=== PATIENT | female | born 1950 | race Caucasian/White ===

== ENCOUNTER 2023-06-25 13:53 | Inpatient (IN) ==
[2023-06-25] MEDS ORDERED: ONDANSETRON INJ 2 MG/ML 2 ML VIAL IV STA (14:00)
[2023-06-25] MEDS ORDERED: SODIUM CHLORIDE 0.9% 1,000 ML IV STA (14:00)
--- NOTE | 2023-06-25 14:12 | Emergency Department Note ---
Impression & Plan Acute pyelonephritis, Complicated UTI (urinary tract infection), Acute right flank pain ED Provider Note NAME: ALEIDA THAKUR AGE: 72 SEX: F : 1950 ARRIVES VIA: Ambulance INFORMANT: Patient, ED PROVIDER(S): Jordan Schafer DO CHIEF COMPLAINT: Flank pain HPI: The patient is a 72-year-old female who has a history of recurrent urinary tract infection as well as urinary retention who presented to the emergency department by ambulance for right flank pain and lower abdominal pain. The patient has had nausea. She denies having any fever. She noticed her urine is becoming cloudy and thought she might have another urinary tract infection. The patient presented by ambulance from [facility]. She wanted to come to our facility because her urologist is here. She has a history of having a cystoscopy in the past. ROS: See above HPI for pertinent positives & negatives. A total of 10 systems reviewed and were otherwise negative. PAST MEDICAL HISTORY: See Below PAST SURGICAL HISTORY: See Below FAMILY HISTORY: See Below SOCIAL HISTORY: See Below HOME MEDICATIONS: See Below ALLERGIES: See Below VITALS: See Below PHYSICAL EXAMINATION: GENERAL: Patient is awake alert in no acute distress patient is resting comfortably and showing no signs of anxiety EYES: The conjunctivae are clear. The pupils are round and reactive. EARS, NOSE, MOUTH AND THROAT: The nose is without any evidence of any deformity. NECK: The neck is nontender and supple. RESPIRATORY: Normal respiratory effort is noted there is no evidence of wheezing rhonchi or rales CARDIOVASCULAR: Regular rate and rhythm noted there no murmurs rubs or gallops normal S1 normal S2. GASTROINTESTINAL: The abdomen is mildly distended but soft. There is no guarding or rigidity appreciated. BACK: Right CVA tenderness was noted to percussion. MUSCULOSKELETAL/EXTREMITIES: There is no evidence of gross deformity full range of motion is noted in the hips and shoulders. SKIN: There is no obvious evidence of any rash. There are no petechiae, pallor or cyanosis noted. NEUROLOGIC: Patient is awake alert and oriented x3 strength is symmetric patellar reflexes are 2+ bilaterally MEDICAL DECISION MAKING: The patient is a 72-year-old female who presented to the emergency department for an evaluation of cloudy urine and flank pain. The patient is a history of urinary retention. She had a Serrano catheter placed because of urinary retention. The Serrano catheter was changed in the emergency department. I discussed the patient's laboratory and radiographic studies with her. She was treated with IV fluids and IV antibiotics. Given her findings I discussed her condition with the on-call [facility]ist. They have agreed to evaluate the patient in the emergency department for further management and disposition. Triage Nursing notes reviewed. Prior medical records reviewed Vital Signs: reviewed and remarkable for elevated blood pressure. Differential diagnosis: Renal colic, UTI, appendicitis, diverticulitis, mesenteric ischemia, aortic pathology, infections, inflammatory bowel disease, PUD, biliary pathology, as well as other pathologies. ER treatment provided: See below Diagnostics interpreted by me: ECG: none Cardiac Monitoring: An order was placed for continuous cardiac monitoring. The monitor shows a rate of 74 bpm with sinus rhythm. Laboratory studies: As stated above and show below. Imaging studies: See below. Radiographic imaging was reviewed by myself Consultation(s): I discussed this case with Dr. Guevara who is on-call for the [facility]ist group. Past Med/Surg History Medical History Gross hematuria Urinary retention Social History Smoking Status: Former smoker Feels Safe at Home: Yes Allergies Allergies Allergy/AdvReac Type Severity Reaction Status Date / Time morphine AdvReac Mild Uncoded 04/26/23 10:37 Home Meds Home Medications Medication Instructions Recorded Confirmed apremilast 30 mg tablet (Otezla) 30 mg PO BID 04/26/23 06/25/23 cholecalciferol (vitamin D3) 50 50 mcg PO DAILY 04/26/23 06/25/23 mcg (2,000 unit) capsule docusate sodium 100 mg capsule 200 mg PO DAILY 04/26/23 06/25/23 (Colace) hydroxyzine HCl 25 mg tablet 25 mg PO DAILY PRN Other 04/26/23 06/25/23 lactulose 10 gram/15 mL oral 45 ml PO DAILY 04/26/23 06/25/23 solution magnesium 200 mg tablet 400 mg PO DAILY 04/26/23 06/25/23 nitroglycerin 0.4 mg sublingual 0.4 mg sublingual Q5M PRN Other 04/26/23 06/25/23 tablet oxycodone 10 mg tablet 10 mg PO Q6H PRN breakthrough pain 04/26/23 06/25/23 oxycodone 20 mg tablet 20 mg PO BID 04/26/23 06/25/23 pantoprazole 40 mg tablet,delayed 40 mg PO DAILY 04/26/23 06/25/23 release (Protonix) polyethylene glycol 3350 17 17 g PO DAILY 04/26/23 06/25/23 gram/dose oral powder (Miralax) pregabalin 300 mg capsule (Lyrica) 300 mg PO BID 04/26/23 06/25/23 rifaximin 550 mg tablet (Xifaxan) 550 mg PO BID 04/26/23 06/25/23 ropinirole 0.5 mg tablet 0.5 mg PO QPM 04/26/23 06/25/23 semaglutide 0.25 mg or 0.5 mg (2 0.5 mg subcut .weekly 04/26/23 06/25/23 mg/3 mL) subcutaneous pen injector (Ozempic) tizanidine 4 mg capsule (Zanaflex) 4 mg PO Q6H PRN Other 04/26/23 06/25/23 umeclidinium 62.5 mcg/actuation 1 inh inhalation DAILY 04/26/23 06/25/23 blister powder for inhalation (Incruse Ellipta) cyanocobalamin (vitamin B-12) See Rx Instructions .Route .COMPLEX 06/25/23 06/25/23 1,000 mcg/mL injection solution duloxetine 30 mg capsule,delayed 30 mg PO DAILY 06/25/23 06/25/23 release isosorbide mononitrate 30 mg 30 mg PO DAILY 06/25/23 06/25/23 tablet,extended release 24 hr ondansetron HCl 4 mg tablet See Rx Instructions .Route .COMPLEX 06/25/23 06/25/23 Previous Rx's Medication Instructions Recorded oxybutynin chloride 10 mg 10 mg PO DAILY #30 tabs 04/26/23 tablet,extended release 24 hr Results & Data (ED) Vital Signs Vital Signs - 24 hr 06/25/23 14:09 06/25/23 14:09 06/25/23 14:20 Temperature 36.9 C Temperature Source Oral Pulse Rate 83 83 Pulse Rate [Apical] Pulse Rhythm Regular Pulse Strength Normal Respiratory Rate 24 Respiratory Effort / Characteristics Non-Labored Respiratory Depth Normal Respiratory Pattern Regular Blood Pressure 198/118 H Blood Pressure [Left Arm] Blood Pressure Mean 144 Blood Pressure Mean [Left Arm] Blood Pressure Position Lying Pulse Oximetry 97 Oxygen Delivery Method Room Air Room Air Sepsis Recent Fever Within 48 Hours No Sepsis New/Unexplained Change in Mental Status No Sepsis Action Taken by Nursing No Action Required 06/25/23 15:39 Temperature Temperature Source Pulse Rate Pulse Rate [Apical] 74 Pulse Rhythm Pulse Strength Respiratory Rate 22 Respiratory Effort / Characteristics Respiratory Depth Respiratory Pattern Blood Pressure Blood Pressure [Left Arm] 197/96 H Blood Pressure Mean Blood Pressure Mean [Left Arm] 129 Blood Pressure Position Pulse Oximetry 98 Oxygen Delivery Method Room Air Sepsis Recent Fever Within 48 Hours Sepsis New/Unexplained Change in Mental Status Sepsis Action Taken by Correction Medications Current Medication List: was personally reviewed by me Laboratory Data Attestation: I reviewed the patient's lab results. 06/25/23 14:10 06/25/23 14:10 Lab Results 06/25/23 06/25/23 06/25/23 Range/Units 14:10 14:10 14:10 WBC 3.47 L (4.8-10.8) K/ul RBC 4.92 (4.20-5.40) M/uL Hgb 12.5 (12.0-16.0) g/dl Hct 40.1 (37.0-47.0) % MCV 81.5 (80.0-100.0) fL MCH 25.4 (25.0-34.0) pg MCHC 31.2 L (32.0-36.0) g/dL RDW Std Deviation 47.8 H (36.4-46.3) fL RDW Coeff of Doreen 16.3 H (11.5-14.5) % Plt Count 134 (130-400) K/uL MPV 10.8 (9.4-12.4) fL Immature Gran % (Auto) 0.6 % Neut % (Auto) 72.5 % Lymph % (Auto) 17.6 % Shackelford % (Auto) 6.1 % Eos % (Auto) 2.6 % Baso % (Auto) 0.6 % Neut # (Auto) 2.52 (1.40-6.50) K/uL Lymph # (Auto) 0.61 L (1.2-3.4) K/uL Shackelford # (Auto) 0.21 (0.11-0.59) K/uL Eos # (Auto) 0.09 (0-0.50) K/uL Baso # (Auto) 0.02 (0-0.2) K/uL Immature Gran # (Auto) 0.02 (0.01-0.20) K/uL PT 10.9 (9.0-12.0) Seconds INR 1.0 (0.9-1.1) APTT 25.0 (21.0-31.0) Seconds PTT Ratio 0.9 Sodium 137 (136-145) mmol/L Potassium 3.9 (3.5-5.1) mmol/L Chloride 104 (98-107) mmol/L Carbon Dioxide 24 (21-32) mmol/L Anion Gap 9 (3-11) BUN 11 (6-23) mg/dl Creatinine 0.59 L (0.6-1.2) mg/dl Est Cr Clr Drug Dosing 98.4 ml/min Est GFR ( Amer) 106.1 ml/min Est GFR (Non-Af Amer) 91.6 ml/min BUN/Creatinine Ratio 18.6 (10-20) Glucose 164 H (70-99(Fasting)) mg/dl Calcium 10.6 H (8.6-10.3) mg/dl Total Bilirubin 0.5 (0.2-1.0) mg/dl AST 15 (13-39) U/L ALT 15 (7-52) U/L Alkaline Phosphatase 128 H (34-104) U/L Total Protein 7.6 (6.0-8.3) gm/dl Albumin 4.3 (3.4-5.0) gm/dl Globulin 3.3 (2.5-4.0) gm/dl Albumin/Globulin Ratio 1.3 (0.9-2) Lipase 15 (11-82) U/L Urine Color Urine Appearance (Clear) Urine pH (4.5-7.5) Ur Specific Dillard (1.000-1.030) Urine Protein (Negative) Urine Glucose (UA) (Negative) Urine Ketones (Negative) Urine Blood (Negative) Urine Nitrite (Negative) Urine Bilirubin (Negative) Urine Urobilinogen (Negative) Ur Leukocyte Esterase (Negative) Urine WBC (Auto) (0-5) /hpf Urine RBC (Auto) (0-4) /hpf U Hyaline Cast (Auto) (0-5) /lpf U Epithel Cells (Auto) (0-5) /lpf Urine Bacteria (Auto) (Negative) 06/25/23 Range/Units 14:27 WBC (4.8-10.8) K/ul RBC (4.20-5.40) M/uL Hgb (12.0-16.0) g/dl Hct (37.0-47.0) % MCV (80.0-100.0) fL MCH (25.0-34.0) pg MCHC (32.0-36.0) g/dL RDW Std Deviation (36.4-46.3) fL RDW Coeff of Doreen (11.5-14.5) % Plt Count (130-400) K/uL MPV (9.4-12.4) fL Immature Gran % (Auto) % Neut % (Auto) % Lymph % (Auto) % Shackelford % (Auto) % Eos % (Auto) % Baso % (Auto) % Neut # (Auto) (1.40-6.50) K/uL Lymph # (Auto) (1.2-3.4) K/uL Shackelford # (Auto) (0.11-0.59) K/uL Eos # (Auto) (0-0.50) K/uL Baso # (Auto) (0-0.2) K/uL Immature Gran # (Auto) (0.01-0.20) K/uL PT (9.0-12.0) Seconds INR (0.9-1.1) APTT (21.0-31.0) Seconds PTT Ratio Sodium (136-145) mmol/L Potassium (3.5-5.1) mmol/L Chloride (98-107) mmol/L Carbon Dioxide (21-32) mmol/L Anion Gap (3-11) BUN (6-23) mg/dl Creatinine (0.6-1.2) mg/dl Est Cr Clr Drug Dosing ml/min Est GFR ( Amer) ml/min Est GFR (Non-Af Amer) ml/min BUN/Creatinine Ratio (10-20) Glucose (70-99(Fasting)) mg/dl Calcium (8.6-10.3) mg/dl Total Bilirubin (0.2-1.0) mg/dl AST (13-39) U/L ALT (7-52) U/L Alkaline Phosphatase (34-104) U/L Total Protein (6.0-8.3) gm/dl Albumin (3.4-5.0) gm/dl Globulin (2.5-4.0) gm/dl Albumin/Globulin Ratio (0.9-2) Lipase (11-82) U/L Urine Color Red Urine Appearance Cloudy A (Clear) Urine pH 7.5 (4.5-7.5) Ur Specific Dillard 1.013 (1.000-1.030) Urine Protein 3+ H (Negative) Urine Glucose (UA) Negative (Negative) Urine Ketones Negative (Negative) Urine Blood 3+ H (Negative) Urine Nitrite Negative (Negative) Urine Bilirubin Negative (Negative) Urine Urobilinogen Negative (Negative) Ur Leukocyte Esterase 2+ H (Negative) Urine WBC (Auto) >30 H (0-5) /hpf Urine RBC (Auto) >30 H (0-4) /hpf U Hyaline Cast (Auto) 5-10 H (0-5) /lpf U Epithel Cells (Auto) 20-30 H (0-5) /lpf Urine Bacteria (Auto) Negative (Negative) Administered Medications Discontinued Medications Sodium Chloride (Nss 1000ml) 1,000 mls @ 999 mls/hr IV .Q1H1M STA Stop: 06/25/23 15:00 Last Admin: 06/25/23 15:35 Dose: 999 mls/hr Documented By: NORA Cefepime HCl (Maxipime) 2,000 mg in 20 mls @ 5 mls/min IV NOW STA; Protocol Stop: 06/25/23 15:32 Last Admin: 06/25/23 15:36 Dose: 5 mls/min Documented By: NORA Ondansetron HCl (Ondansetron Inj 2 Mg/Ml 2 Ml Vial) 4 mg IV NOW STA Stop: 06/25/23 14:01 Last Admin: 06/25/23 15:35 Dose: 4 mg Documented By: NORA Imaging Data Attestation: I personally reviewed and interpreted this imaging study as follows: My Impression: CT of the abdomen and pelvis was obtained in the emergency department. My interpretation is no free air or signs of bowel obstruction, final report below Radiologist's Impression: Abdomen/Pelvis CT 06/25/23 14:00 CT SCAN OF THE ABDOMEN AND PELVIS WITHOUT IV CONTRAST CLINICAL HISTORY: Right flank pain. COMPARISON STUDY: Abdominal CT dated 04/01/2023. TECHNIQUE: CT scan of the abdomen and pelvis is performed from the lung bases to the proximal femora. Images are reviewed in the axial, sagittal, and coronal planes. IV contrast was not administered for this examination. A dose lowering technique was utilized adhering to the principles of ALARA. CT DOSE: 1349.67 mGy.cm FINDINGS: Lung bases: The heart is normal in size and without pericardial effusion. The coronary arteries are densely calcified. A small hiatal hernia is incidentally noted. There are scattered calcified granulomas. Mild scarring/atelectasis is noted at the lung bases. No airspace consolidation or pleural effusion is seen. Liver: The unenhanced liver is enlarged and heterogeneous, measuring 26.3 cm in length. The liver is cirrhotic in morphology, with hypertrophy of the left lobe and caudate and nodularity of the hepatic surface contour. There is no intrahepatic biliary ductal dilatation. There are scattered calcified hepatic granulomas. Gallbladder: The gallbladder is distended and contains a tiny calcified gallstone. Trace pericholecystic fluid is nonspecific and may be related to perihepatic ascites. Spleen: The spleen is enlarged measuring 14.8 cm in length. Pancreas: Unremarkable. Adrenal glands: Unremarkable. Kidneys: The unenhanced kidneys demonstrate mild cortical atrophy and are with out hydronephrosis. There is a 4 mm nonobstructing right renal calculus. No left renal calculi are identified and no ureteral stone is seen. There is no evidence of contour deforming renal mass lesion. Abdominal vasculature: There is advanced atherosclerotic calcification and mild ectasia of the abdominal aorta. Bowel: There is mild colonic diverticulosis without CT evidence of acute diverticulitis. No bowel obstruction is seen. There is mild to moderate colonic fecal retention. Postsurgical change is noted at the ileocecal junction. The appendix is no identified and presumed surgically absent. Peritoneum: There is a small volume of perihepatic ascites. There is also trace ascites in the pelvis. No intraperitoneal free air is seen. Lymphadenopathy: None. Pelvic viscera: The bladder is decompressed around a Serrano catheter. The bladder wall appears thickened and there is pericystic inflammation. There are nonspecific foci of gas within the bladder lumen. The uterus is surgically absent. No adnexal lesion is seen. Skeletal structures: The skeletal structures are osteopenic. There is moderate lumbosacral spondylosis with multilevel laminectomy change. No lytic or blastic lesions are seen. A sacral stimulator device is present in the right gluteal soft tissues. Arthritic change is seen in the hips. A bone graft donor site is s een in the medial right ilium. IMPRESSION: 1. Cystitis. Correlate with clinical findings and urinalysis. 2. The liver is enlarged, heterogeneous, and cirrhotic in morphology. 3. A small volume of abdominopelvic ascites and splenomegaly indicate portal hypertension. 4. The gallbladder is distended and contains a tiny calcified gallstone. Trace pericholecystic fluid is nonspecific and may be related to cirrhotic change. If there is clinical concern for acute cholecystitis a right upper quadrant ultrasound should be obtained. 5. Right-sided nephrolithiasis. 6. Additional findings as above. ACT 112: Negative or not required by law. Electronically signed by: Garfield Plata M.D. 06/25/2023 3:29 PM Discharge Plan Visit Data Chief Complaint: Urinary Symptoms Stated Complaint: URINARY SYMPTOMS ED Provider: Jordan Schafer Discharge Problem: Acute pyelonephritis, Complicated UTI (urinary tract infection), Acute right flank pain Patient Disposition: Being Evaluated by Hospitalist Forms Stand Alone Forms: My [facility] Prescriptions Prescriptions: No Action docusate sodium [Colace] 100 mg capsule 200 mg PO DAILY hydroxyzine HCl 25 mg tablet 25 mg PO DAILY PRN (Reason: Other) Incruse Ellipta 62.5 mcg/actuation blister with device 1 inh inhalation DAILY lactulose 10 gram/15 mL solution 45 ml PO DAILY Rx Instructions: per pt she reduced the dosing to once daily instead of qid magnesium 200 mg tablet 400 mg PO DAILY nitroglycerin 0.4 mg tablet, sublingual 0.4 mg sublingual Q5M PRN (Reason: Other) Rx Instructions: do not exceed 3 doses per episode Otezla 30 mg tablet 30 mg PO BID Rx Instructions: being changed to skyrizzi when delivered on the oxycodone 20 mg tablet 20 mg PO BID oxycodone 10 mg tablet 10 mg PO Q6H PRN (Reason: breakthrough pain) Rx Instructions: per pt up to 4 tiems daily Ozempic 0.25 mg or 0.5 mg (2 mg/3 mL) pen injector 0.5 mg subcut .weekly Patient Comments: Mondays Rx Instructions: tuesday pantoprazole [Protonix] 40 mg tablet,delayed release (DR/EC) 40 mg PO DAILY polyethylene glycol 3350 [Miralax] 17 gram/dose powder 17 g PO DAILY pregabalin [Lyrica] 300 mg capsule 300 mg PO BID ropinirole 0.5 mg tablet 0.5 mg PO QPM tizanidine [Zanaflex] 4 mg capsule 4 mg PO Q6H PRN (Reason: Other) cholecalciferol (vitamin D3) 50 mcg (2,000 unit) capsule 50 mcg PO DAILY Xifaxan 550 mg tablet 550 mg PO BID oxybutynin chloride 10 mg tablet extended release 24hr 10 mg PO DAILY Qty: 30 2RF duloxetine 30 mg capsule,delayed release(DR/EC) 30 mg PO DAILY ondansetron HCl 4 mg tablet See Rx Instructions .ROUTE .COMPLEX Rx Instructions: as directed isosorbide mononitrate 30 mg tablet extended release 24 hr 30 mg PO DAILY cyanocobalamin (vitamin B-12) 1,000 mcg/mL solution See Rx Instructions .ROUTE .COMPLEX Rx Instructions: Doesnt have set date, son gives her injection when its delviered Referrals Referrals: Unknown,Unknown [] -
[2023-06-25 14:35] LABS: Basophils # (auto) 0.02 K/uL (0-0.2); Basophils % (auto) 0.6 %; Eosinophils # (auto) 0.09 K/uL (0-0.50); Eosinophils % (auto) 2.6 %; Hematocrit (blood only) 40.1 % (37.0-47.0); Hemoglobin 12.5 g/dl (12.0-16.0); Immature Granulocytes # (auto) 0.02 K/uL (0.01-0.20); Immature Granulocytes % (auto) 0.6 %; Lymphocytes # (auto) 0.61 K/uL (1.2-3.4); Lymphocytes % (auto) 17.6 %; Mean Corpuscular Hemoglobin 25.4 pg (25.0-34.0); Mean Corpuscular Hgb Conc 31.2 g/dL (32.0-36.0); Mean Corpuscular Volume 81.5 fL (80.0-100.0); Mean Platelet Volume 10.8 fL (9.4-12.4); Monocytes # (auto) 0.21 K/uL (0.11-0.59); Monocytes % (auto) 6.1 %; Neutrophils # (auto) 2.52 K/uL (1.40-6.50); Neutrophils % (auto) 72.5 %; Platelet Count 134 K/uL (130-400); RDW Coefficient of Variation 16.3 % (11.5-14.5); RDW Standard Deviation 47.8 fL (36.4-46.3); Red Blood Count 4.92 M/uL (4.20-5.40); White Blood Count 3.47 K/ul (4.8-10.8)
[2023-06-25 14:49] LABS: Albumin Globulin Ratio 1.3 (0.9-2); Albumin Level 4.3 gm/dl (3.4-5.0); BUN Creatinine Ratio 18.6 (10-20); Bilirubin,Total 0.5 mg/dl (0.2-1.0); Calcium 10.6 mg/dl (8.6-10.3); Creatinine Clr Calc Pharmacy 98.4 ml/min; Est GFR (African American) 106.1 ml/min; Est GFR (Non-African American) 91.6 ml/min; Globulin 3.3 gm/dl (2.5-4.0); Potassium 3.9 mmol/L (3.5-5.1); Total Protein 7.6 gm/dl (6.0-8.3)
[2023-06-25 15:01] LABS: Appearance Urine Cloudy (Clear); Bacteria Urine Automated Negative (Negative); Bilirubin Urine Negative (Negative); Blood Urine 3+ (Negative); Color Urine Red; Epithelial Cell Urine Auto 20-30 /lpf (0-5); Glucose Urine UA Negative (Negative); Ketones Urine Negative (Negative); Leukocyte Esterase Urine 2+ (Negative); Nitrite Urine Negative (Negative); RBC Urine Automated >30 /hpf (0-4); Specific Gravity Urine 1.013 (1.000-1.030); Urobilinogen Urine Negative (Negative); WBC Urine Automated >30 /hpf (0-5); pH Urine 7.5 (4.5-7.5)
[2023-06-25 15:10] LABS: Protein Urine 3+ (Negative)
[2023-06-25] MEDS ORDERED: CEFEPIME 2,000 MG/20 ML VIAL IV STA (15:29)
--- NOTE | 2023-06-25 15:31 | CT Scan Report ---
CT SCAN OF THE ABDOMEN AND PELVIS WITHOUT IV CONTRAST CLINICAL HISTORY: Right flank pain. COMPARISON STUDY: Abdominal CT dated 04/01/2023. TECHNIQUE: CT scan of the abdomen and pelvis is performed from the lung bases to the proximal femora. Images are reviewed in the axial, sagittal, and coronal planes. IV contrast was not administered for this examination. A dose lowering technique was utilized adhering to the principles of ALARA. CT DOSE: 1349.67 mGy.cm FINDINGS: Lung bases: The heart is normal in size and without pericardial effusion. The coronary arteries are d ensely calcified. A small hiatal hernia is incidentally noted. There are scattered calcified granulom as. Mild scarring/atelectasis is noted at the lung bases. No airspace consolidation or pleural effusi on is seen. Liver: The unenhanced liver is enlarged and heterogeneous, measuring 26.3 cm in length. The liver is cirrhotic in morphology, with hypertrophy of the left lobe and caudate and nodularity of the hepatic surface contour. There is no intrahepatic biliary ductal dilatation. There are scattered calcified he patic granulomas. Gallbladder: The gallbladder is distended and contains a tiny calcified gallstone. Trace pericholecys tic fluid is nonspecific and may be related to perihepatic ascites. Spleen: The spleen is enlarged measuring 14.8 cm in length. Pancreas: Unremarkable. Adrenal glands: Unremarkable. Kidneys: The unenhanced kidneys demonstrate mild cortical atrophy and are without hydronephrosis. The re is a 4 mm nonobstructing right renal calculus. No left renal calculi are identified and no uretera l stone is seen. There is no evidence of contour deforming renal mass lesion. Abdominal vasculature: There is advanced atherosclerotic calcification and mild ectasia of the abdomi nal aorta. Bowel: There is mild colonic diverticulosis without CT evidence of acute diverticulitis. No bowel obs truction is seen. There is mild to moderate colonic fecal retention. Postsurgical change is noted at the ileocecal junction. The appendix is no identified and presumed surgically absent. Peritoneum: There is a small volume of perihepatic ascites. There is also trace ascites in the pelvis . No intraperitoneal free air is seen. Lymphadenopathy: None. Pelvic viscera: The bladder is decompressed around a Serrano catheter. The bladder wall appears thicken ed and there is pericystic inflammation. There are nonspecific foci of gas within the bladder lumen. The uterus is surgically absent. No adnexal lesion is seen. Skeletal structures: The skeletal structures are osteopenic. There is moderate lumbosacral spondylosi s with multilevel laminectomy change. No lytic or blastic lesions are seen. A sacral stimulator devic e is present in the right gluteal soft tissues. Arthritic change is seen in the hips. A bone graft do nor site is seen in the medial right ilium. IMPRESSION: 1. Cystitis. Correlate with clinical findings and urinalysis. 2. The liver is enlarged, heterogeneous, and cirrhotic in morphology. 3. A small volume of abdominopelvic ascites and splenomegaly indicate portal hypertension. 4. The gallbladder is distended and contains a tiny calcified gallstone. Trace pericholecystic fluid is nonspecific and may be related to cirrhotic change. If there is clinical concern for acute cholecy stitis a right upper quadrant ultrasound should be obtained. 5. Right-sided nephrolithiasis. 6. Additional findings as above. ACT 112: Negative or not required by law. Electronically signed by: Garfield Plata M.D. 06/25/2023 3:29 PM
--- NOTE | 2023-06-25 16:17 | History & Physical Report ---
Date of Service June 25, 2023 Assessment & Plan (1) Complicated UTI (urinary tract infection): Plan: Acute UTI, complicated 2/2 indwelling catheter Recommended for inpatient admission due to complicated UTI with catheter and 3 recent courses of antibiotics at risk for resistance Neutropenic 3.47 with history of iron deficiency/Hernandez cirrhosis. Hemoglobin 12.5 Creatinine 0.59 UA chronic infected versus contaminated appearing due to catheter - CT-A/P: 1. Cystitis. Correlate with clinical findings and urinalysis. 2. The liver is enlarged, heterogeneous, and cirrhotic in morphology. 3. A small volume of abdominopelvic ascites and splenomegaly indicate portal hypertension. 4. The gallbladder is distended and contains a tiny calcified gallstone. Trace pericholecystic fluid is nonspecific and may be related to cirrhotic change. If there is clinical concern for acute cholecystitis a right upper quadrant ultrasound should be obtained. 5. Right-sided nephrolithiasis. 6. Additional findings as above. Continue empiric cefepime due to recurrent hospitalization/real treatment/resistance risk Narrow based on culture speciation/sensitivities No concurrent NIDIA/hydro noted Leukopenia, hemoglobin low normal, MCV low normal History of iron deficiency, no baseline WBC available for review Iron, folate, B12 pending Tickborne panel pending Chronic pain, chronic low back pain Patient has oxycodone ER 20 mg twice daily and immediate release 10 mg up to 4 times daily prescribed by pain and spine specialists of [facility]. Additionally has pregabalin 300 mg prescribed by [facility]. Will continue home medications, defer narcotic increase at time of admission. Caution narcotic use in the setting of cirrhosis and history of hyperammonemia/encephalopathy Pregabalin continued - Was pending fentanyl pain pump placement as outpatient. Held plaavix pending this but has been deferred HERNANDEZ cirrhosis with history of varices Follows with [facility] No GI bleeding, no abdominal tenderness. CT as noted, small volume of ascites Has had severe constipation with oral iron, requires IV iron infusions as outpatient No longer on nadolol due to bradycardia/syncope/intolerance Continue rifaximin, lactulose. Reportedly stopped her spironolactone and Lasix although unclear why. Currently ascites is mild. She is hypertensive, with mild ascites spironolactone/Lasix resumed. - Coags ordered Psoriatic arthritis Apremilast temporarily held in the setting of infection Anxiety/depression Continue Cymbalta 30 mg daily, citalopram discontinued CAD, history of PCI [facility] (Dr. Rodríguez) closed, Dr. Dowling (cardiology) office closed Patient stent card for a LAD stent x1 which was placed 6 months w/ Dr. Shaikh at [facility] Patient reports she was switched to Plavix monotherapy after 6 months, and she held her Plavix in anticipation of having a possible fentanyl pump placed with pain management. However this has been delayed due to her recurrent infections and currently has not been taking any antiplatelet. Given this she is high risk for stent reocclusion, Plavix has been restarted in ER. Isosorbide continued.? Beta-dk, reports a history of intolerance due to low heart rate and dizziness ideally would be on this for history of varices and CAD No chest pain/chest pressure prior to admission History of COPD Continue home inhalers Urinary retention With chronic opioids for pain Chronic indwelling Serrano with failed outpatient voiding trials Some concern for colovesicular fistula, considered too high risk for operative intervention. Neuro stimulator also is unable to be revised/replaced Suprapubic catheter discussed on past urology follow-up but again deferred due to operative and anesthesia risk Type II DM Hold semaglutide Goal BSG [id number]. Switch to basal bolus. 8 units Lantus twice daily. Sliding scale CF 50 CR 60 weight-based Glucose checks AC/at bedtime DVT prophylaxis: SCDs. Diet: Heart healthy, low-sodium, type II DM Disposition: Medical/surgical CODE STATUS: DNR/DNI (2) Urinary retention: (3) Gross hematuria: (4) CAD (coronary artery disease): (5) Psoriasis: (6) GERD (gastroesophageal reflux disease): (7) Chronic pain: History of Present Illness Primary Care Provider: Michael Madrigal MD Deidra is a 72-year-old female with a past medical history of Hernandez cirrhosis with portal hypertension, REDDY, polyneuropathy, urinary retention Presents by ambulance for right flank pain and lower abdominal pain with nausea. No fever. Urine cloudy, chronic indwelling Serrano. Requested transfer to [facility] due to her urologist being with our facility. Pt reports sees Dr. Madrigal as outpatient. Last 3 nurse visits was recommended to come to the ER, but had progressive low back and abdominal pain and coulnd't take the spasms so called EMS to come to the hospital. +dysuria, +bladder spasms which make her back pain worse. Recently been on Keflex for UTI, bactrim before that, cipro before that. Was last on an abx 10 days ago. Culture was taken at [facility] Feels more fatigued and confused the last few days, but feels she is able to answer questions accurately now just feels 'foggy.' Has decided to defer stimulator retrial 'its been for years, cant be replaced or removed due to my surgical risk and too much corrosion on the leasd.' Pt reports no bleeding/melena. +hematuria but no blood in bowls. Reports she does take nadolol for esophageal varices but was unable to tolerate this was gradually discontinued. Medical History: Reviewed Medications: Reviewed Surgical History: Reviewed Family history: Reviewed Allergies: Reviewed Social History: no tobacco, no etoh Code Status: DNR/DNI Allergies Allergy/AdvReac Type Severity Reaction Status Date / Time morphine AdvReac Mild Uncoded 04/26/23 10:37 Home Medications Medication Instructions Recorded Confirmed Type apremilast 30 mg tablet (Otezla) 30 mg PO BID 04/26/23 06/25/23 History cholecalciferol (vitamin D3) 50 50 mcg PO DAILY 04/26/23 06/25/23 History mcg (2,000 unit) capsule docusate sodium 100 mg capsule 200 mg PO DAILY 04/26/23 06/25/23 History (Colace) hydroxyzine HCl 25 mg tablet 25 mg PO DAILY PRN Other 04/26/23 06/25/23 History lactulose 10 gram/15 mL oral 45 ml PO DAILY 04/26/23 06/25/23 History solution magnesium 200 mg tablet 400 mg PO DAILY 04/26/23 06/25/23 History nitroglycerin 0.4 mg sublingual 0.4 mg sublingual Q5M PRN Other 04/26/23 06/25/23 History tablet oxybutynin chloride 10 mg 10 mg PO DAILY #30 tabs 04/26/23 06/25/23 Rx tablet,extended release 24 hr oxycodone 10 mg tablet 10 mg PO Q6H PRN breakthrough pain 04/26/23 06/25/23 History oxycodone 20 mg tablet 20 mg PO BID 04/26/23 06/25/23 History pantoprazole 40 mg tablet,delayed 40 mg PO DAILY 04/26/23 06/25/23 History release (Protonix) polyethylene glycol 3350 17 17 g PO DAILY 04/26/23 06/25/23 History gram/dose oral powder (Miralax) pregabalin 300 mg capsule (Lyrica) 300 mg PO BID 04/26/23 06/25/23 History rifaximin 550 mg tablet (Xifaxan) 550 mg PO BID 04/26/23 06/25/23 History ropinirole 0.5 mg tablet 0.5 mg PO QPM 04/26/23 06/25/23 History semaglutide 0.25 mg or 0.5 mg (2 0.5 mg subcut .weekly 04/26/23 06/25/23 History mg/3 mL) subcutaneous pen injector (Ozempic) tizanidine 4 mg capsule (Zanaflex) 4 mg PO Q6H PRN Other 04/26/23 06/25/23 History umeclidinium 62.5 mcg/actuation 1 inh inhalation DAILY 04/26/23 06/25/23 History blister powder for inhalation (Incruse Ellipta) cyanocobalamin (vitamin B-12) See Rx Instructions .Route .COMPLEX 06/25/23 06/25/23 History 1,000 mcg/mL injection solution duloxetine 30 mg capsule,delayed 30 mg PO DAILY 06/25/23 06/25/23 History release isosorbide mononitrate 30 mg 30 mg PO DAILY 06/25/23 06/25/23 History tablet,extended release 24 hr ondansetron HCl 4 mg tablet See Rx Instructions .Route .COMPLEX 06/25/23 06/25/23 History Past Med/Surg History Medical History CAD (coronary artery disease) Chronic pain GERD (gastroesophageal reflux disease) Gross hematuria Psoriasis Urinary retention Social History Smoking Status: Former smoker Feels Safe at Home: Yes Physical Exam Physical Exam: General: A&Ox3. NAD. Cooperative. HEENT: Atraumatic, normocephalic. Vision/hearing intact Pulm: CTAB A&P. -wheezes, -rales, -rhonchi. Symmetrical chest rise. No increased work of breathing. No respiratory distress. Cardiac: RRR, -mrg. Radial pulses intact and symmetrical. Abdominal: Nontender, softly distended, soft. BS present. Extremities: Warm dry. Moves upper extremities equally. No asterixis Results & Data Results & Data Vital Signs (Past 12 Hours) Vital Signs Temp Pulse Pulse Resp BP BP Pulse Ox 06/25/23 15:39 74 22 197/96 H 98 06/25/23 14:20 83 06/25/23 14:09 06/25/23 14:09 36.9 C 83 24 198/118 H 97 O2 Del Method 06/25/23 15:39 Room Air 06/25/23 14:20 06/25/23 14:09 Room Air 06/25/23 14:09 Room Air PG Care Time/CCT Total # of Minutes Spent Total Time Spent with Patient: Total time spent is greater than 50% in coordination of care (as documented) at patient's floor/unit and/or counseling patient: Coding Level of Care Code 71370 INT INP/OBS CARE 3/75MIN Diagnoses Complicated UTI (urinary tract infection) N39.0 Urinary retention R33.9 Gross hematuria R31.0 CAD (coronary artery disease) I25.10 Psoriasis L40.9 GERD (gastroesophageal reflux disease) K21.9 Chronic pain G89.29
[2023-06-25 16:43] LABS: Partial Thromboplastin Ratio 0.9; Prothrombin Time 10.9 Seconds (9.0-12.0)
[2023-06-25] MEDS ORDERED: HYDROmorphone INJ 0.5 MG/0.5 ML SYR IV STA (17:36)
[2023-06-25] MEDS ORDERED: CLOPIDOGREL BISULFATE 75 MG TAB PO ONE (17:37)
[2023-06-25] MEDS ORDERED: SPIRONOLACTONE 25 MG TAB PO ONE (17:58)
[2023-06-25] MEDS: hydrALAZINE HCL 20 MG/ML VIAL IV PRN (18:38)
[2023-06-25 18:44] LABS: Ferritin 14.9 ng/ml (8-388)
[2023-06-25 18:49] LABS: Folate (Folic Acid),Ser orPlas 9.35 ng/ml (>5.38)
[2023-06-25] MEDS ORDERED: DEXTROSE 50% 50 ML SYRINGE IV PRN (19:23)
[2023-06-25] MEDS ORDERED: GLUCAGON FOR INJ 1 MG VIAL SQ PRN (19:23)
[2023-06-25] MEDS ORDERED: CARBOHYDRATES FOR HYPOGLYCEMIA PO PRN (19:23)
[2023-06-25] MEDS ORDERED: GLUCOSE 40% GEL 15 GM TUBE PO PRN (19:23)
[2023-06-25] MEDS ORDERED: GLUCOSE 10 TAB/TUBE PO PRN (19:23)
[2023-06-25] MEDS ORDERED: hydrALAZINE HCL 20 MG/ML VIAL IV ONE (19:42)
[2023-06-25] MEDS: oxyCODONE HCL 20 MG TABCR (OxyCONTIN) PO SCH (19:57)
[2023-06-25] MEDS: oxyCODONE HCL IR 5 MG TAB (IMMEDIATE RELEASE) PO PRN (20:45)
[2023-06-25] MEDS: PREGABALIN 150 MG CAP PO SCH (20:45)
[2023-06-25] MEDS: rOPINIRole HCL 0.25 MG TABLET PO SCH (20:46)
[2023-06-25] MEDS: rifAXIMin 550 MG TABLET PO SCH (20:46)
[2023-06-25] MEDS: LANTUS PER UNIT CHARGE SQ SCH (20:51)
[2023-06-25] MEDS: INSULIN ASPART PER UNIT CHARGE SC SCH (20:51)
[2023-06-26] MEDS: ONDANSETRON INJ 2 MG/ML 2 ML VIAL IV PRN ×2 (00:09→20:01)
[2023-06-26] MEDS: CEFEPIME 2,000 MG in SYRINGE 0 ML IV SCH ×3 (00:10→16:13)
[2023-06-26] MEDS: tiZANidine HCL 4 MG TABLET PO PRN ×3 (00:18→21:19)
[2023-06-26] MEDS: oxyCODONE HCL IR 5 MG TAB (IMMEDIATE RELEASE) PO PRN ×4 (03:30→21:19)
[2023-06-26] MEDS: UMECLIDINIUM BROMIDE 62.5MCG/BLISTER 7 PUFFS/INHALER INH SCH (09:10)
[2023-06-26] MEDS: POLYETHYLENE (MIRALAX) 17 GM PACK PO SCH ×2 (09:10→09:18)
[2023-06-26] MEDS: PREGABALIN 150 MG CAP PO SCH ×2 (09:11→21:19)
[2023-06-26] MEDS: oxyCODONE HCL 20 MG TABCR (OxyCONTIN) PO SCH ×2 (09:11→21:49)
[2023-06-26] MEDS: rifAXIMin 550 MG TABLET PO SCH ×2 (09:11→21:20)
[2023-06-26] MEDS: FUROSEMIDE INJ 20 MG/2 ML VIAL IV SCH (09:11)
[2023-06-26] MEDS: PANTOprazole 40 MG TAB PO SCH (09:12)
[2023-06-26] MEDS: ISOSORBIDE MONO EXTENDED REL 30 MG TABCR PO SCH (09:12)
[2023-06-26] MEDS: LACTULOSE SYRUP 30 GM/45 ML UDP PO SCH (09:12)
[2023-06-26] MEDS: OXYBUTYNIN CHLORIDE XL 5 MG TABCR PO SCH (09:12)
[2023-06-26] MEDS: DULoxetine HCL 30 MG CAP PO SCH (09:12)
[2023-06-26] MEDS: LANTUS PER UNIT CHARGE SQ SCH ×2 (09:13→21:19)
[2023-06-26] MEDS: INSULIN ASPART PER UNIT CHARGE SC SCH ×4 (09:13→21:50)
[2023-06-26] MEDS ORDERED: SIMETHICONE 80 MG CHEW PO ONE (19:32)
--- NOTE | 2023-06-26 20:13 | Hospitalist Progress Note ---
Date of Service June 26, 2023 Assessment & Plan (1) Complicated UTI (urinary tract infection): Plan: catheter-associated UTI has chronic pena due to urinary retention, follows with [facility] [place] Urology see "subjective" portion for review of most recent pathogens cont cefepime for GNR add ampicillin for enterococcus CT a/p without obstructing lesion in the urinary tract recent cystoscopy done by [facility] [place] Urology show considerable bladder wall inflammation but no obvious vesicular fistula tract (2) Urinary retention: Plan: 2nd to recurrent UTIs, neurogenic causes, etc has bladder stimulator but has not helped has pena in place follows with [facility] [place] Urology (3) Gross hematuria: Plan: 2nd to UTI H/H stable (4) CAD (coronary artery disease): Plan: no ischemic issues at this time (5) Psoriasis: Plan: on apremilast BID chronically for such (6) GERD (gastroesophageal reflux disease): Plan: with upper epigastric pain increase PPI to bid dosing (7) Chronic pain: Plan: cont oxycontin + oxycodone prn + lyrica, etc (8) Cirrhosis: Plan: cont lactulose cont rifaximin Plan will need PT/OT while here Admission and Anticipated Discharge Date Admission Date: June 25, 2023 Subjective pt resting comfortably in bed main issue is that of lower abdominal discomfort and bladder pain she took her phone out and was able to bring up her portal through [facility] system -- urine cx results over the spring were - 04/27 - klebsiella 04/09 - enterococcus faecalis 04/09 - citrobacter 03/21 - e.coli has had her pena for several months very frustrated by the recurrent UTIs appetite is very poor able to drink fluids however no fevers very tired Review of Systems Review of Systems: gen - no fevers or chills cv - no chest pain pulm - no dyspnea GI - bloating, abd pain, some nausea Physical Exam Physical Exam: gen - NAD, pleasant mouth - MM dry neck - no JVD heart - RRR, s1 s2 lungs - CTA b/l abd - mildly distended, BS+, tender high epigastric region, no HSM ext - no edema, pulses 2+ b/l psych - a/o x 3 neuro - no asterixis Results & Data Results & Data Vital Signs (Past 12 Hours) Vital Signs Temp Pulse Resp BP Pulse Ox O2 Del Method 06/26/23 19:49 Room Air 06/26/23 15:09 36.9 C 89 17 127/75 97 Room Air Laboratory Results Laboratory Results 06/25/23 06/25/23 06/25/23 14:10 14:10 14:10 WBC 3.47 L RBC 4.92 Hgb 12.5 Hct 40.1 MCV 81.5 MCH 25.4 MCHC 31.2 L RDW Std Deviation 47.8 H RDW Coeff of Doreen 16.3 H Plt Count 134 MPV 10.8 Immature Gran % (Auto) 0.6 Neut % (Auto) 72.5 Lymph % (Auto) 17.6 [place] % (Auto) 6.1 Eos % (Auto) 2.6 Baso % (Auto) 0.6 Neut # (Auto) 2.52 Lymph # (Auto) 0.61 L [place] # (Auto) 0.21 Eos # (Auto) 0.09 Baso # (Auto) 0.02 Immature Gran # (Auto) 0.02 PT 10.9 INR 1.0 APTT 25.0 PTT Ratio 0.9 Sodium 137 Potassium 3.9 Chloride 104 Carbon Dioxide 24 Anion Gap 9 BUN 11 Creatinine 0.59 L Est Cr Clr Drug Dosing 98.4 Est GFR ( Amer) 106.1 Est GFR (Non-Af Amer) 91.6 BUN/Creatinine Ratio 18.6 Glucose 164 H POC Glucose Estimat Average Glucose Hemoglobin A1c Calcium 10.6 H Magnesium Iron TIBC Unsaturated IBC Transferrin % Sat Ferritin Total Bilirubin 0.5 AST 15 ALT 15 Alkaline Phosphatase 128 H Ammonia Total Protein 7.6 Albumin 4.3 Globulin 3.3 Albumin/Globulin Ratio 1.3 Lipase 15 Vitamin B12 Folate Urine Color Urine Appearance Urine pH Ur Specific [place] Urine Protein Urine Glucose (UA) Urine Ketones Urine Blood Urine Nitrite Urine Bilirubin Urine Urobilinogen Ur Leukocyte Esterase Urine WBC (Auto) Urine RBC (Auto) U Hyaline Cast (Auto) U Epithel Cells (Auto) Urine Bacteria (Auto) 06/25/23 06/25/23 06/25/23 14:27 17:51 17:51 WBC RBC Hgb Hct MCV MCH MCHC RDW Std Deviation RDW Coeff of Doreen Plt Count MPV Immature Gran % (Auto) Neut % (Auto) Lymph % (Auto) [place] % (Auto) Eos % (Auto) Baso % (Auto) Neut # (Auto) Lymph # (Auto) [place] # (Auto) Eos # (Auto) Baso # (Auto) Immature Gran # (Auto) PT INR APTT PTT Ratio Sodium Potassium Chloride Carbon Dioxide Anion Gap BUN Creatinine Est Cr Clr Drug Dosing Est GFR ( Amer) Est GFR (Non-Af Amer) BUN/Creatinine Ratio Glucose POC Glucose Estimat Average Glucose Hemoglobin A1c Calcium Magnesium Iron 28 L TIBC 367 Unsaturated IBC 339 Transferrin % Sat 8 L Ferritin 14.9 Total Bilirubin AST ALT Alkaline Phosphatase Ammonia 24.0 Total Protein Albumin Globulin Albumin/Globulin Ratio Lipase Vitamin B12 Folate Urine Color Red Urine Appearance Cloudy A Urine pH 7.5 Ur Specific [place] 1.013 Urine Protein 3+ H Urine Glucose (UA) Negative Urine Ketones Negative Urine Blood 3+ H Urine Nitrite Negative Urine Bilirubin Negative Urine Urobilinogen Negative Ur Leukocyte Esterase 2+ H Urine WBC (Auto) >30 H Urine RBC (Auto) >30 H U Hyaline Cast (Auto) 5-10 H U Epithel Cells (Auto) 20-30 H Urine Bacteria (Auto) Negative 06/25/23 06/25/23 06/26/23 17:51 20:14 06:02 WBC RBC Hgb Hct MCV MCH MCHC RDW Std Deviation RDW Coeff of Doreen Plt Count MPV Immature Gran % (Auto) Neut % (Auto) Lymph % (Auto) [place] % (Auto) Eos % (Auto) Baso % (Auto) Neut # (Auto) Lymph # (Auto) [place] # (Auto) Eos # (Auto) Baso # (Auto) Immature Gran # (Auto) PT INR APTT PTT Ratio Sodium Potassium Chloride Carbon Dioxide Anion Gap BUN Creatinine Est Cr Clr Drug Dosing Est GFR ( Amer) Est GFR (Non-Af Amer) BUN/Creatinine Ratio Glucose POC Glucose 176 H Estimat Average Glucose 151 Hemoglobin A1c 6.9 H Calcium Magnesium Iron TIBC Unsaturated IBC Transferrin % Sat Ferritin Total Bilirubin AST ALT Alkaline Phosphatase Ammonia Total Protein Albumin Globulin Albumin/Globulin Ratio Lipase Vitamin B12 475 Folate 9.35 Urine Color Urine Appearance Urine pH Ur Specific [place] Urine Protein Urine Glucose (UA) Urine Ketones Urine Blood Urine Nitrite Urine Bilirubin Urine Urobilinogen Ur Leukocyte Esterase Urine WBC (Auto) Urine RBC (Auto) U Hyaline Cast (Auto) U Epithel Cells (Auto) Urine Bacteria (Auto) 08/06/23 08/06/23 08/06/23 07:47 11:44 16:52 WBC RBC Hgb Hct MCV MCH MCHC RDW Std Deviation RDW Coeff of Doreen Plt Count MPV Immature Gran % (Auto) Neut % (Auto) Lymph % (Auto) [place] % (Auto) Eos % (Auto) Baso % (Auto) Neut # (Auto) Lymph # (Auto) [place] # (Auto) Eos # (Auto) Baso # (Auto) Immature Gran # (Auto) PT INR APTT PTT Ratio Sodium Potassium Chloride Carbon Dioxide Anion Gap BUN Creatinine Est Cr Clr Drug Dosing Est GFR ( Amer) Est GFR (Non-Af Amer) BUN/Creatinine Ratio Glucose POC Glucose 168 H 185 H 118 H Estimat Average Glucose Hemoglobin A1c Calcium Magnesium Iron TIBC Unsaturated IBC Transferrin % Sat Ferritin Total Bilirubin AST ALT Alkaline Phosphatase Ammonia Total Protein Albumin Globulin Albumin/Globulin Ratio Lipase Vitamin B12 Folate Urine Color Urine Appearance Urine pH Ur Specific [place] Urine Protein Urine Glucose (UA) Urine Ketones Urine Blood Urine Nitrite Urine Bilirubin Urine Urobilinogen Ur Leukocyte Esterase Urine WBC (Auto) Urine RBC (Auto) U Hyaline Cast (Auto) U Epithel Cells (Auto) Urine Bacteria (Auto) Diagnostic Findings Microbiology 06/25/23 14:27 Urine,Straight Cath Urine Culture - Preliminary Gram negative bacilli Probable Enterococcus PG Care Time/CCT Total # of Minutes Spent Total Time Spent with Patient: Total time spent is greater than 50% in coordination of care (as documented) at patient's floor/unit and/or counseling patient: Coding Level of Care Code 41716 SUB INP/OBS CARE 2/35MIN Diagnoses Complicated UTI (urinary tract infection) N39.0 Urinary retention R33.9 Gross hematuria R31.0 CAD (coronary artery disease) I25.10 Psoriasis L40.9 GERD (gastroesophageal reflux disease) K21.9 Chronic pain G89.29 Cirrhosis K74.60
[2023-06-26] MEDS: rOPINIRole HCL 0.25 MG TABLET PO SCH (21:20)
[2023-06-26] MEDS: AMPICILLIN 2,000 MG in SODIUM CHLOR 0.9% AD-VAN 100 ML IV SCH (21:49)
[2023-06-26] MEDS ORDERED: KETOROLAC TROMETHAMINE 15 MG/ML VIAL IV ONE (21:59)
--- NOTE | 2023-06-26 23:36 | CT Scan Report ---
Exam(s): CT ABDOMEN + PELVIS Without Contrast EXAM: CT Abdomen and Pelvis Without Intravenous Contrast CLINICAL HISTORY: ?worsening ascites. TECHNIQUE: Axial computed tomography images of the abdomen and pelvis without intravenous contrast. CTDI is 27 mGy and DLP is 1337.94 mGy-cm. Automated exposure control was utilized for the study. A dose lowering technique was utilized adhering to the principles of ALARA. COMPARISON: 06/25/2023 FINDINGS: Lung bases: Unremarkable. No mass. No consolidation. ABDOMEN: Liver: The liver demonstrates similar markedly abnormal lobular contours. No appreciable alteration from the previous examination. Gallbladder and bile ducts: Unremarkable. No calcified stones. No ductal dilation. Pancreas: Unremarkable. No ductal dilation. Spleen: The spleen is borderline prominent and stable in appearance. Adrenals: Unremarkable. No mass. Kidneys and ureters: Punctate nonobstructive 1-2 mm nephrolithiasis involving the right kidney. No hydronephrosis noted bilaterally. Stomach and bowel: No evidence for bowel obstruction. Prominent gas distention of the colon in several nondilated small bowel loops. No obvious asymmetric mucosal prominence. Stable postsurgical changes at the ileocecal region. PELVIS: Appendix: Surgically absent Bladder: The bladder is decompressed with a Serrano catheter in position. There remains bladder wall thickening with perivesicular fat stranding. No stones. Reproductive: Hysterectomy. ABDOMEN and PELVIS: Intraperitoneal space: The previously noted small volume ascites is less prominent on today's examination with only trace fluid in Morison's pouch. No loculation. No free air. Bones/joints: Stable postsurgical changes involving the lumbar spine. Stable degenerative changes of the lumbar spine. No acute fracture. No dislocation. Soft tissues: Unremarkable. Vasculature: Stable atherosclerotic calcification of the aorta with a subtle fusiform appearance of the infrarenal aorta, stable. No abdominal aortic aneurysm. Lymph nodes: Unremarkable. No enlarged lymph nodes. Tubes, lines and devices: Stable stimulator lead extending through a right sacral neural foramina. IMPRESSION: 1. The previously noted small volume ascites is less prominent on today's examination with only trace fluid in Morison's pouch. No loculation. 2. The bladder is decompressed with a Serrano catheter in position. There remains bladder wall thickening with perivesicular fat stranding. Recurrent or persistent cystitis is suspected. Please correlate with urinalysis findings. 3. No evidence for bowel obstruction. Prominent gas distention of the colon in several nondilated small bowel loops is nonspecific in appearance. No obvious asymmetric mucosal prominence. No pneumoperitoneum. Electronically signed by: Ulices Almaraz MD 06/26/23 23:35 PM
[2023-06-27] MEDS ORDERED: CHLORHEXIDINE GLUCONATE 0.12% 480 ML MT PRN (00:34)
[2023-06-27] MEDS ORDERED: CHLORASEPTIC 1.4% SOLN 180 ML BTL MT PRN (00:40)
[2023-06-27] MEDS: AMPICILLIN 2,000 MG in SODIUM CHLOR 0.9% AD-VAN 100 ML IV SCH ×4 (01:08→20:29)
[2023-06-27] MEDS: CEFEPIME 2,000 MG in SYRINGE 0 ML IV SCH ×3 (01:08→16:18)
--- NOTE | 2023-06-27 03:05 | Communication Note ---
Date of Service: June 27, 2023 Overnight patient complaining of abdominal pain and distention that started yesterday afternoon. She presumed this was gas build up so we tried a dose of s imethicone without resolve. CT A/P was obtained prominent gas distention of the colon in several nondilated small bowel loops. There was no increase in ascites and without bowel obstruction. Discussed placing an NG tube for symptomatic relief. Pt was amenable and did feel some relief s/p NG tube placement. Will continue this for now, may be able to remove in the am.
[2023-06-27] MEDS: oxyCODONE HCL IR 5 MG TAB (IMMEDIATE RELEASE) PO PRN (06:40)
[2023-06-27] MEDS: hydrALAZINE HCL 20 MG/ML VIAL IV PRN (07:20)
--- NOTE | 2023-06-27 07:34 | XRay Report ---
XR KUB/Abdomen 1 view CLINICAL HISTORY: for after NGT placement TECHNIQUE: 1 view of the abdomen was obtained. Comparison: Comparison is made to CT abdomen pelvis 06/26/2023 FINDINGS: Enteric tube terminates in the stomach. Partially visualized bilateral shoulder arthroplasties. The b owel gas pattern is nonobstructive. Visualized portion of the chest is unremarkable. IMPRESSION: Satisfactory position of enteric tube. ACT 112: Negative or not required by law. Electronically signed by: Alec Flores M.D. 06/27/2023 7:32 AM
[2023-06-27 07:53] LABS: Basophils # (auto) 0.02 K/uL (0-0.2); Basophils % (auto) 0.7 %; Eosinophils # (auto) 0.15 K/uL (0-0.50); Hematocrit (blood only) 36.2 % (37.0-47.0); Hemoglobin 11.3 g/dl (12.0-16.0); Immature Granulocytes # (auto) 0.01 K/uL (0.01-0.20); Immature Granulocytes % (auto) 0.3 %; Lymphocytes # (auto) 0.51 K/uL (1.2-3.4); Mean Corpuscular Hemoglobin 25.4 pg (25.0-34.0); Mean Corpuscular Hgb Conc 31.2 g/dL (32.0-36.0); Mean Corpuscular Volume 81.3 fL (80.0-100.0); Mean Platelet Volume 10.3 fL (9.4-12.4); Monocytes # (auto) 0.27 K/uL (0.11-0.59); Neutrophils # (auto) 2.04 K/uL (1.40-6.50); Platelet Count 113 K/uL (130-400); RDW Coefficient of Variation 16.9 % (11.5-14.5); RDW Standard Deviation 49.7 fL (36.4-46.3); Red Blood Count 4.45 M/uL (4.20-5.40)
[2023-06-27] MEDS ORDERED: hydrALAZINE HCL 20 MG/ML VIAL IV SCH (08:00)
[2023-06-27 08:06] LABS: BUN Creatinine Ratio 15.6 (10-20); Calcium 9.8 mg/dl (8.6-10.3); Creatinine Clr Calc Pharmacy 75.4 ml/min; Est GFR (African American) 89.4 ml/min; Est GFR (Non-African American) 77.1 ml/min; Magnesium 1.7 mg/dl (1.7-2.4); Potassium 3.8 mmol/L (3.5-5.1)
[2023-06-27 08:26] LABS: Estimated Average Glucose 151 mg/dl; Hemoglobin A1C 6.9 % (4.5-5.6)
[2023-06-27] MEDS: ONDANSETRON INJ 2 MG/ML 2 ML VIAL IV PRN (09:20)
[2023-06-27] MEDS ORDERED: bisacodyL 10 MG SUPP PR STA (09:29)
[2023-06-27] MEDS: INSULIN ASPART PER UNIT CHARGE SC SCH ×4 (09:41→18:17)
[2023-06-27] MEDS: LANTUS PER UNIT CHARGE SQ SCH (09:42)
[2023-06-27] MEDS: DULoxetine HCL 30 MG CAP PO SCH (09:42)
[2023-06-27] MEDS: PREGABALIN 150 MG CAP PO SCH ×2 (09:42→21:25)
[2023-06-27] MEDS: oxyCODONE HCL 20 MG TABCR (OxyCONTIN) PO SCH ×2 (09:42→21:27)
[2023-06-27] MEDS: POLYETHYLENE (MIRALAX) 17 GM PACK PO SCH (09:42)
[2023-06-27] MEDS: PANTOprazole 40 MG TAB PO SCH (09:42)
[2023-06-27] MEDS: LACTULOSE SYRUP 30 GM/45 ML UDP PO SCH (09:42)
[2023-06-27] MEDS: ISOSORBIDE MONO EXTENDED REL 30 MG TABCR PO SCH (09:42)
[2023-06-27] MEDS: OXYBUTYNIN CHLORIDE XL 5 MG TABCR PO SCH (09:42)
[2023-06-27] MEDS: rifAXIMin 550 MG TABLET PO SCH ×2 (09:43→21:26)
[2023-06-27] MEDS: HYDROmorphone INJ 0.5 MG/0.5 ML SYR IV PRN ×5 (09:47→23:18)
[2023-06-27] MEDS: UMECLIDINIUM BROMIDE 62.5MCG/BLISTER 7 PUFFS/INHALER INH SCH (09:55)
[2023-06-27] MEDS: FUROSEMIDE INJ 20 MG/2 ML VIAL IV SCH (10:54)
[2023-06-27] MEDS: POTASSIUM CHLORIDE 20 MEQ in LACTATED RINGER'S 1,000 ML IV SCH (11:00)
[2023-06-27] MEDS: PANTOprazole 40 MG in SYRINGE 0 ML IV SCH ×2 (12:11→20:25)
--- NOTE | 2023-06-27 15:51 | Hospitalist Progress Note ---
Date of Service June 27, 2023 Assessment & Plan (1) Ileus: Plan: patient was distended yesterday on exam but had no vomiting or nausea. patient reports this distension has been present for several weeks or longer. the distension & pain worsened overnight. CT a/p with colonic distension c/w ileus; no transition point to suggest obstructive process. NG tube was placed overnight w/o incident. c diff testing today negative. multiple risk factors for ileus - bed-bound/chair-bound status, lactulose use with gaseous distension from such, chronic narcotic dependence, and concurrent infection. cont NG tube cautiously, hopefully can remove soon with ongoing flatus/stool passage and improvement in symptoms/signs. (2) Complicated UTI (urinary tract infection): Plan: catheter-associated UTI has chronic pena due to urinary retention, follows with [facility] cont cefepime for GNR cont ampicillin for enterococcus CT a/p without obstructing lesion in the urinary tract recent cystoscopy done by [facility] showed considerable bladder wall inflammation but no obvious vesicular fistulous tract (some ? of colo-vesicular fistula has been raised in the past by report) (3) Upper abdominal pain: Plan: present for weeks-months cont PPI twice daily RUQ us today without any gallstones or features of cholecystitis certainly the gaseous distension can contribute was to have outpatient EGD with [facility] this week but got admitted to our hospital she has been having not only pain but dysphagia as well cont PPI IV BID consult [facility] for consideration of EGD this admission to assess for stricture, mass, varices, etc she has not had an EGD in 3 years per her recollection pain meds prn care d/w Dr Feng today by phone (4) Urinary retention: Plan: 2nd to recurrent UTIs, neurogenic causes, etc has bladder stimulator but has not helped has pena in place follows with [facility] (5) Gross hematuria: Plan: 2nd to UTI H/H stable urine has cleared (6) CAD (coronary artery disease): Plan: no ischemic issues at this time (7) Psoriasis: Plan: on apremilast BID chronically for such (8) GERD (gastroesophageal reflux disease): Plan: with upper epigastric pain cont PPI twice daily see #3 above (9) Chronic pain: Plan: oxycontin + oxycodone lyrica tizanidine all on hold due to NPO status and NG tube dilaudid 1mg IV prn while chronic PO narcs are on hold (10) Cirrhosis: Plan: 2nd DICKSON follows with [facility] has not had surveillance EGD in 3 years h/o varices by report clamp NG tube to give rifaximin in order to avoid rising ammonia levels hold lactulose for now given the ileus [facility] consulted as above (11) Diabetes mellitus: Plan: a1c 6.9% hold lantus due to NPO status novolog SSI bsg q6h while NPO (12) DVT prophylaxis: Plan: at high risk due to bed-bound / nonambulatory status as well as cirrhosis add heparin or similar tomorrow if CBC is stable Plan will need PT/OT while here son extensively updated at bedside today Admission and Anticipated Discharge Date Admission Date: June 25, 2023 Subjective events of overnight noted pt had increasing abdominal pain and bloating she did not have vomiting overnight despite the above CT a/p obtained- gaseous distension of colon/small bowel decision made to place NG tube KUB post-placement - NG in place has drained a small amount of bilious fluid since despite the NG she continues with abdominal pain even continues with a mild amount of nausea no flatus late in the day passed a small, liquid stool - sent for c diff and was negative patient reports the upper abdominal pain has been present for weeks/months the bloating has been going on for some time as well was to have EGD in [place] today by [facility] she has dysphagia and "things get stuck" she also has nausea following meals during my visit her son was at bedside of note - patient has been on narcotics since 1988 her oxycontin dose has not been changed in a long time there was consideration being given to having a fentanyl pain pump device inserted by pain management in the future for her chronic pain pt is essentially bed-bound and chair-bound really can't walk Review of Systems Review of Systems: gen - no fevers or chills cv - no chest pain pulm - no dyspnea GI - see HPI - pena in place Physical Exam Physical Exam: gen - NAD, looks unwell mouth - MMM nose - NG in place; draining bilious material/fluid neck - no JVD heart - RRR, s1 s2, no murmur lungs - CTA b/l abd - moderately distended, tympanic to percussion, BS+ but very diminished, tender high epigastric region and over RUQ, no HSM ext - no edema, pulses 2+ b/l psych - a/o x 3 neuro - no asterixis Results & Data Results & Data Vital Signs (Past 12 Hours) Vital Signs Temp Pulse Resp BP BP Pulse Ox O2 Del Method 06/27/23 14:45 37 C 74 16 173/91 H 94 Room Air 06/27/23 08:10 79 151/79 H 06/27/23 07:11 36.9 C 85 18 186/94 H 175/90 H 95 Room Air Laboratory Results Laboratory Results - last 24 hr 06/26/23 06/26/23 06/26/23 06:02 16:52 20:12 WBC RBC Hgb Hct MCV MCH MCHC RDW Std Deviation RDW Coeff of Doreen Plt Count MPV Immature Gran % (Auto) Neut % (Auto) Lymph % (Auto) Ness % (Auto) Eos % (Auto) Baso % (Auto) Neut # (Auto) Lymph # (Auto) Ness # (Auto) Eos # (Auto) Baso # (Auto) Immature Gran # (Auto) Sodium Potassium Chloride Carbon Dioxide Anion Gap BUN Creatinine Est Cr Clr Drug Dosing Est GFR ( Amer) Est GFR (Non-Af Amer) BUN/Creatinine Ratio Glucose POC Glucose 118 H 128 H Estimat Average Glucose 151 Hemoglobin A1c 6.9 H Calcium Magnesium 06/27/23 06/27/23 06/27/23 07:27 07:27 07:59 WBC 3.00 L RBC 4.45 Hgb 11.3 L Hct 36.2 L MCV 81.3 MCH 25.4 MCHC 31.2 L RDW Std Deviation 49.7 H RDW Coeff of Doreen 16.9 H Plt Count 113 L MPV 10.3 Immature Gran % (Auto) 0.3 Neut % (Auto) 68.0 Lymph % (Auto) 17.0 Ness % (Auto) 9.0 Eos % (Auto) 5.0 Baso % (Auto) 0.7 Neut # (Auto) 2.04 Lymph # (Auto) 0.51 L Ness # (Auto) 0.27 Eos # (Auto) 0.15 Baso # (Auto) 0.02 Immature Gran # (Auto) 0.01 Sodium 139 Potassium 3.8 Chloride 106 Carbon Dioxide 27 Anion Gap 6 BUN 12 Creatinine 0.77 Est Cr Clr Drug Dosing 75.4 Est GFR ( Amer) 89.4 Est GFR (Non-Af Amer) 77.1 BUN/Creatinine Ratio 15.6 Glucose 153 H POC Glucose 148 H Estimat Average Glucose Hemoglobin A1c Calcium 9.8 Magnesium 1.7 06/27/23 11:55 WBC RBC Hgb Hct MCV MCH MCHC RDW Std Deviation RDW Coeff of Doreen Plt Count MPV Immature Gran % (Auto) Neut % (Auto) Lymph % (Auto) Ness % (Auto) Eos % (Auto) Baso % (Auto) Neut # (Auto) Lymph # (Auto) Ness # (Auto) Eos # (Auto) Baso # (Auto) Immature Gran # (Auto) Sodium Potassium Chloride Carbon Dioxide Anion Gap BUN Creatinine Est Cr Clr Drug Dosing Est GFR ( Amer) Est GFR (Non-Af Amer) BUN/Creatinine Ratio Glucose POC Glucose 126 H Estimat Average Glucose Hemoglobin A1c Calcium Magnesium Diagnostic Findings Abdomen/Pelvis CT 06/26/23 21:51 Exam(s): CT ABDOMEN + PELVIS Without Contrast EXAM: CT Abdomen and Pelvis Without Intravenous Contrast CLINICAL HISTORY: ?worsening ascites. TECHNIQUE: Axial computed tomography images of the abdomen and pelvis without intravenous contrast. CTDI is 27 mGy and DLP is 1337.94 mGy-cm. Automated exposure control was utilized for the study. A dose lowering technique was utilized adhering to the principles of ALARA. COMPARISON: 06/25/2023 FINDINGS: Lung bases: Unremarkable. No mass. No consolidation. ABDOMEN: Liver: The liver demonstrates similar markedly abnormal lobular contours. No appreciable alteration from the previous examination. Gallbladder and bile ducts: Unremarkable. No calcified stones. No ductal dilation. Pancreas: Unremarkable. No ductal dilation. Spleen: The spleen is borderline prominent and stable in appearance. Adrenals: Unremarkable. No mass. Kidneys and ureters: Punctate nonobstructive 1-2 mm nephrolithiasis involving the right kidney. No hydronephrosis noted bilaterally. Stomach and bowel: No evidence for bowel obstruction. Prominent gas distention of the colon in several nondilated small bowel loops. No obvious asymmetric mucosal prominence. Stable postsurgical changes at the ileocecal region. PELVIS: Appendix: Surgically absent Bladder: The bladder is decompressed with a Pena catheter in position. There remains bladder wall thickening with perivesicular fat stranding. No stones. Reproductive: Hysterectomy. ABDOMEN and PELVIS: Intraperitoneal space: The previously noted small volume ascites is less prominent on today's examination with only trace fluid in Morison's pouch. No loculation. No free air. Bones/joints: Stable postsurgical changes involving the lumbar spine. Stable degenerative changes of the lumbar spine. No acute fracture. No dislocation. Soft tissues: Unremarkable. Vasculature: Stable atherosclerotic calcification of the aorta with a subtle fusiform appearance of the infrarenal aorta, stable. No abdominal aortic aneurysm. Lymph nodes: Unremarkable. No enlarged lymph nodes. Tubes, lines and devices: Stable stimulator lead extending through a right sacral neural foramina. IMPRESSION: 1. The previously noted small volume ascites is less prominent on today's examination with only trace fluid in Morison's pouch. No loculation. 2. The bladder is decompressed with a Pena catheter in position. There remains bladder wall thickening with perivesicular fat stranding. Recurrent or persistent cystitis is suspected. Please correlate with urinalysis findings. 3. No evidence for bowel obstruction. Prominent gas distention of the colon in several nondilated small bowel loops is nonspecific in appearance. No obvious asymmetric mucosal prominence. No pneumoperitoneum. Electronically signed by: Ulices Almaraz MD 06/26/23 23:35 PM KUB X-Ray 06/26/23 23:37 XR KUB/Abdomen 1 view CLINICAL HISTORY: for after NGT placement TECHNIQUE: 1 view of the abdomen was obtained. Comparison: Comparison is made to CT abdomen pelvis 06/26/2023 FINDINGS: Enteric tube terminates in the stomach. Partially visualized bilateral shoulder arthroplasties. The bowel gas pattern is nonobstructive. Visualized portion of the chest is unremarkable. IMPRESSION: Satisfactory position of enteric tube. ACT 112: Negative or not required by law. Electronically signed by: Alec Flores M.D. 06/27/2023 7:32 AM Gallbladder Ultrasound 06/27/23 15:53 ABDOMINAL ULTRASOUND, RIGHT UPPER QUADRANT HISTORY: gallstones, upper abd pain, r/o taylor. COMPARISON: Abdomen and pelvis CT 06/26/2023. FINDINGS: Pancreas: The pancreatic tail is obscured by overlying bowel gas. The remaining portions of the pancreas are within normal limits. Liver: Nodular contour to the liver consistent with cirrhosis. Liver is normal in size. No hepatic masses. The main portal vein appears patent. Gallbladder: No gallstones identified. There is a 7 mm gallbladder polyp. Negative sonographic Bell sign. No significant gallbladder wall thickening. CBD: 2 mm. Right kidney: No hydronephrosis. IMPRESSION: 1. A 7 mm gallbladder polyp. Follow-up recommended to ensure stability. 2. Cirrhotic liver again noted. ACT 112: Negative or not required by law. Electronically signed by: Brian Adan M.D. 06/27/2023 5:53 PM PG Care Time/CCT Total # of Minutes Spent Total Time Spent with Patient: Total time spent is greater than 50% in coordination of care (as documented) at patient's floor/unit and/or counseling patient: Coding Level of Care Code 38145 SUB INP/OBS CARE 3/50MIN Diagnoses Ileus K56.7 Complicated UTI (urinary tract infection) N39.0 Upper abdominal pain R10.10 Urinary retention R33.9 Gross hematuria R31.0 CAD (coronary artery disease) I25.10 Psoriasis L40.9 GERD (gastroesophageal reflux disease) K21.9 Chronic pain G89.29 Cirrhosis K74.60 Diabetes mellitus E11.9 DVT prophylaxis Z29.9
[2023-06-27] MEDS: hydrALAZINE HCL 20 MG/ML VIAL IV SCH (16:12)
--- NOTE | 2023-06-27 17:54 | Ultrasound Report ---
ABDOMINAL ULTRASOUND, RIGHT UPPER QUADRANT HISTORY: gallstones, upper abd pain, r/o taylor. COMPARISON: Abdomen and pelvis CT 06/26/2023. FINDINGS: Pancreas: The pancreatic tail is obscured by overlying bowel gas. The remaining portions of the pancr eas are within normal limits. Liver: Nodular contour to the liver consistent with cirrhosis. Liver is normal in size. No hepatic ma sses. The main portal vein appears patent. Gallbladder: No gallstones identified. There is a 7 mm gallbladder polyp. Negative sonographic Bell sign. No significant gallbladder wall thickening. CBD: 2 mm. Right kidney: No hydronephrosis. IMPRESSION: 1. A 7 mm gallbladder polyp. Follow-up recommended to ensure stability. 2. Cirrhotic liver again noted. ACT 112: Negative or not required by law. Electronically signed by: Brian Adan M.D. 06/27/2023 5:53 PM
[2023-06-27] MEDS: rOPINIRole HCL 0.25 MG TABLET PO SCH (21:27)
[2023-06-28] MEDS: CEFEPIME 2,000 MG in SYRINGE 0 ML IV SCH ×2 (00:20→08:39)
[2023-06-28] MEDS: hydrALAZINE HCL 20 MG/ML VIAL IV SCH ×4 (00:21→23:57)
[2023-06-28] MEDS: INSULIN ASPART PER UNIT CHARGE SC SCH ×4 (01:48→18:09)
[2023-06-28] MEDS: POTASSIUM CHLORIDE 20 MEQ in LACTATED RINGER'S 1,000 ML IV SCH ×2 (01:48→14:11)
[2023-06-28] MEDS: AMPICILLIN 2,000 MG in SODIUM CHLOR 0.9% AD-VAN 100 ML IV SCH ×4 (02:00→19:27)
[2023-06-28] MEDS: HYDROmorphone INJ 0.5 MG/0.5 ML SYR IV PRN ×7 (02:32→22:23)
[2023-06-28] MEDS: tiZANidine HCL 4 MG TABLET PO PRN ×3 (03:21→22:23)
[2023-06-28] MEDS: ONDANSETRON INJ 2 MG/ML 2 ML VIAL IV PRN (05:39)
[2023-06-28] MEDS: COUGH DROP (SUGAR FREE) LOZ 24 LOZ/1 BOX BUCCAL PRN (06:19)
[2023-06-28 07:27] LABS: Hematocrit (blood only) 35.2 % (37.0-47.0); Mean Corpuscular Hemoglobin 25.7 pg (25.0-34.0); Mean Corpuscular Hgb Conc 31.3 g/dL (32.0-36.0); Mean Corpuscular Volume 82.2 fL (80.0-100.0); Mean Platelet Volume 10.7 fL (9.4-12.4); Platelet Count 116 K/uL (130-400); RDW Standard Deviation 50.6 fL (36.4-46.3); Red Blood Count 4.28 M/uL (4.20-5.40); White Blood Count 3.59 K/ul (4.8-10.8)
[2023-06-28 07:46] LABS: BUN Creatinine Ratio 18.2 (10-20); Calcium 9.6 mg/dl (8.6-10.3); Est GFR (African American) 102.3 ml/min; Est GFR (Non-African American) 88.3 ml/min; Magnesium 1.7 mg/dl (1.7-2.4); Potassium 3.8 mmol/L (3.5-5.1)
--- NOTE | 2023-06-28 08:22 | Hospitalist Progress Note ---
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 faecalis, both sensitive to ampicillin, will continue ampicillin for both for now and continue with Augmentin on discharge (2) Urinary retention: Plan: 2nd to recurrent UTIs, neurogenic causes, etc Has bladder stimulator but has not helped Has pena in place Follows with [facility] (3) Ileus: Plan: Had NGT placed however given improvement and Hx esophageal varices have removed this KUB today with mild gaseous distention and moderate fecal retention Continue lactulose, bowel regimen, consider Relistor if not moving bowels but currently having diarrhea (overflow?) Stool studies ordered for diarrhea (4) Gross hematuria: Plan: 2nd to hemorrhagic cystitis H/H stable (5) CAD (coronary artery disease): Plan: no ischemic issues at this time (6) Psoriasis: Plan: on apremilast BID chronically for such No evidence of rash, did discuss moisturization as patient has dry skin and this worsens itching and rashes Hydroxyzine prn (7) GERD (gastroesophageal reflux disease): Plan: Continue PPI BID (8) Chronic pain: Plan: Cont OxyContin + oxycodone prn + lyrica, etc (9) Cirrhosis: Plan: Cont lactulose, rifaximin Missed EGD outpatient due to admission (was for worsening Sx and surveillance EGD), reports worsening dysphagia and upper abd pain with Hx cirrhosis/varices GI to consider barium swallow once ileus improves, with outpatient EGD Plan Has PT and OT orders in place, for GI consult today, ongoing evaluation and management of ileus/UTI Admission and Anticipated Discharge Date Admission Date: June 25, 2023 Subjective No overnight events, reports her belly feels less distended, still with some abdominal/back pain with movement though better. Has ongoing diarrheal issues. Review of Systems Review of Systems: All systems reviewed & are unremarkable except as noted in Subjective Physical Exam Constitutional: WD/WN, vitals as above Respiratory: normal respiratory effort, lungs clear to auscultation Cardiovascular: RRR, no murmur, no edema Gastrointestinal (Abdomen): normal BS, abdomen soft, mildly diffusely tender, no rebound or guarding Skin: no clear discernable rash but some areas of scabbing and excoriation Psychiatric: A+Ox3, euthymic affect Results & Data Results & Data Vital Signs (Past 12 Hours) Vital Signs Temp Pulse Resp BP BP Pulse Ox O2 Del Method 06/28/23 07:52 36.9 C 88 18 146/77 H 92 Room Air 06/27/23 21:45 36.9 C 73 20 160/75 H 96 Room Air PG Care Time/CCT Total # of Minutes Spent Total Time Spent with Patient: Total time spent is greater than 50% in coordination of care (as documented) at patient's floor/unit and/or counseling patient: Coding Level of Care Code 19231 SUB INP/OBS CARE 3/50MIN Diagnoses Complicated UTI (urinary tract infection) N39.0 Urinary retention R33.9 Ileus K56.7 Gross hematuria R31.0 CAD (coronary artery disease) I25.10 Psoriasis L40.9 GERD (gastroesophageal reflux disease) K21.9 Chronic pain G89.29 Cirrhosis K74.60
[2023-06-28] MEDS: PANTOprazole 40 MG in SYRINGE 0 ML IV SCH ×2 (08:28→20:20)
[2023-06-28] MEDS: POLYETHYLENE (MIRALAX) 17 GM PACK PO SCH (08:30)
[2023-06-28] MEDS: UMECLIDINIUM BROMIDE 62.5MCG/BLISTER 7 PUFFS/INHALER INH SCH (08:30)
[2023-06-28] MEDS: LACTULOSE SYRUP 30 GM/45 ML UDP PO SCH (08:30)
[2023-06-28] MEDS: PANTOprazole 40 MG TAB PO SCH (08:32)
[2023-06-28] MEDS: ISOSORBIDE MONO EXTENDED REL 30 MG TABCR PO SCH (08:32)
[2023-06-28] MEDS: rifAXIMin 550 MG TABLET PO SCH ×2 (08:32→20:20)
[2023-06-28] MEDS: DULoxetine HCL 30 MG CAP PO SCH (08:32)
[2023-06-28] MEDS: FUROSEMIDE INJ 20 MG/2 ML VIAL IV SCH (08:33)
[2023-06-28] MEDS: OXYBUTYNIN CHLORIDE XL 5 MG TABCR PO SCH (08:34)
[2023-06-28] MEDS: PREGABALIN 150 MG CAP PO SCH ×2 (09:33→20:26)
[2023-06-28] MEDS: oxyCODONE HCL IR 5 MG TAB (IMMEDIATE RELEASE) PO PRN (09:33)
[2023-06-28] MEDS: oxyCODONE HCL 20 MG TABCR (OxyCONTIN) PO SCH ×2 (09:46→22:23)
--- NOTE | 2023-06-28 11:57 | Gastrointestinal Consultation ---
Date of Consultation June 28, 2023 Assessment & Plan (1) Dysphagia: -Consider barium swallow when ileus improves. Will need outpatient EGD for variceal screening this year. -Continue Protonix 40 mg BID (2) Cirrhosis: -Continue hepatology care per [facility] -No acute changes to care at present (3) Ileus: -Would avoid NG tube to eliminate risk of variceal bleeding -Patient takes chronic narcotics and likely needs outpatient evaluation regarding her home bowel regimen Supervising Physician Co-Signing Physician Notes I saw the patient and agree with the findings as documented by KOFI Jerome History of Present Illness Reason for Consultation: Dysphagia Attending Physician: Ann-Marie Smith DO History of Present Illness Patient is a 72 yo female who is currently hospitalized at [facility] for UTI/urinary retention. She has a history of an indwelling pena. GI has been asked to be involved due to dysphagia. Patient reports her dysphagia is intermittent and has been ongoing for months. She notes she was scheduled to have an outpatient GI appointment today. She initially noted that this appointment was to occur at [facility] in [place], however she later mentioned she was avoiding being seen in [place], so I am unsure where this appointment was to occur. She notes a history of EGD 3 years ago. She has them routinely for esophageal varices from her cirrhosis. She is managed by [facility] hepatology in [place]. I do not have records of her liver care at this time. She currently has an ileus. It appears the primary service placed an NG tube. She is not having vomiting. She takes chronic narcotics due to chronic pain. There are no acute liver concerns during her stay at present. Allergies Allergy/AdvReac Type Severity Reaction Status Date / Time morphine AdvReac Mild Uncoded 04/26/23 10:37 Home Medications Medication Instructions Recorded Confirmed Type apremilast 30 mg tablet (Otezla) 30 mg PO BID 04/26/23 06/25/23 History cholecalciferol (vitamin D3) 50 50 mcg PO DAILY 04/26/23 06/25/23 History mcg (2,000 unit) capsule docusate sodium 100 mg capsule 200 mg PO DAILY 04/26/23 06/25/23 History (Colace) hydroxyzine HCl 25 mg tablet 25 mg PO DAILY PRN Other 04/26/23 06/25/23 History lactulose 10 gram/15 mL oral 45 ml PO DAILY 04/26/23 06/25/23 History solution magnesium 200 mg tablet 400 mg PO DAILY 04/26/23 06/25/23 History nitroglycerin 0.4 mg sublingual 0.4 mg sublingual Q5M PRN Other 04/26/2304/12 History tablet oxybutynin chloride 10 mg 10 mg PO DAILY #30 tabs 04/26/23 06/25/23 Rx tablet,extended release 24 hr oxycodone 10 mg tablet 10 mg PO Q6H PRN breakthrough pain 04/26/23 06/25/23 History oxycodone 20 mg tablet 20 mg PO BID 04/26/23 06/25/23 History pantoprazole 40 mg tablet,delayed 40 mg PO DAILY 04/26/23 06/25/23 History release (Protonix) polyethylene glycol 3350 17 17 g PO DAILY 04/26/23 06/25/23 History gram/dose oral powder (Miralax) pregabalin 300 mg capsule (Lyrica) 300 mg PO BID 04/26/23 06/25/23 History rifaximin 550 mg tablet (Xifaxan) 550 mg PO BID 04/26/23 06/25/23 History ropinirole 0.5 mg tablet 0.5 mg PO QPM 04/26/23 06/25/23 History semaglutide 0.25 mg or 0.5 mg (2 0.5 mg subcut .weekly 04/26/23 06/25/23 History mg/3 mL) subcutaneous pen injector (Ozempic) tizanidine 4 mg capsule (Zanaflex) 4 mg PO Q6H PRN Other 04/26/23 06/25/23 History umeclidinium 62.5 mcg/actuation 1 inh inhalation DAILY 04/26/23 06/25/23 History blister powder for inhalation (Incruse Ellipta) cyanocobalamin (vitamin B-12) See Rx Instructions .Route .COMPLEX 06/25/23 06/25/23 History 1,000 mcg/mL injection solution duloxetine 30 mg capsule,delayed 30 mg PO DAILY 06/25/23 06/25/23 History release isosorbide mononitrate 30 mg 30 mg PO DAILY 06/25/23 06/25/23 History tablet,extended release 24 hr ondansetron HCl 4 mg tablet See Rx Instructions .Route .COMPLEX 06/25/23 06/25/23 History Patient History Medical History CAD (coronary artery disease) Chronic pain GERD (gastroesophageal reflux disease) Gross hematuria Psoriasis Urinary retention Social History Smoking Status: Former smoker Hx Alcohol Use: No Hx Substance Use: No Preferred Language: Cambodian Communication Ability: Effective Redevelopment Manager Required: No Beliefs That Will Affect Care: None Current Living Situation: Alone Other Information That Helps Us Care for You: No Feels Safe at Home: Yes Safety Concerns: Feels Safe At This Time Assistive Devices: Glasses, Lift Chair and Wheelchair Review of Systems Constitutional: no fever and no chills Respiratory: no cough and no dyspnea Cardiovascular: no chest pain Gastrointestinal: + abdominal pain, + dysphagia and + constipation; no hematemesis, no blood in stools and no melena Psychiatric: no problem reported Physical Exam Constitutional: well developed Respiratory: normal respiratory effort, lungs clear to auscultation Gastrointestinal (Abdomen): Inspection/Auscultation: + abdomen distended Percussion/Palpation: abdomen nontender Musculoskeletal: Head/Neck/Chest: normocephalic Psychiatric: Orientation: alert and oriented x 3 Results & Data Vital Signs (Past 12 Hours) Vital Signs Temp Pulse Resp BP Pulse Ox O2 Del Method 06/28/23 07:52 36.9 C 88 18 146/77 H 92 Room Air PG Care Time/CCT Total # of Minutes Spent Total Time Spent with Patient: Total time spent is greater than 50% in coordination of care (as documented) at patient's floor/unit and/or counseling patient: Coding Level of Care Code 76387 INT INP/OBS CARE 3/75MIN Diagnoses Dysphagia R13.10 Cirrhosis K74.60 Ileus K56.7
--- NOTE | 2023-06-28 12:13 | XRay Report ---
KUB HISTORY: eval for ileus improvement COMPARISON: KUB 06/27/2023. FINDINGS: Nasogastric tube terminates in the distal stomach. Right lower quadrant sacral stimulator l ead is noted. Mild right and moderate left hip osteoarthritis. Moderate fecal retention again noted. Mild gaseous distention of the colon persists. No dilated loops of small bowel identified. No renal calculi. No ureteral calculi. No pneumoperitoneum or pneumatosis. IMPRESSION: 1. Nasogastric tube terminates in the distal stomach. 2. Mild gaseous distention of the colon in moderate fecal retention persists. ACT 112: Negative or not required by law. Electronically signed by: Brian Adan M.D. 06/28/2023 12:12 PM
[2023-06-28] MEDS: hydrOXYzine HCl 25 MG TAB PO PRN (16:40)
[2023-06-28] MEDS: rOPINIRole HCL 0.25 MG TABLET PO SCH (20:19)
[2023-06-29] MEDS: INSULIN ASPART PER UNIT CHARGE SC SCH ×4 (01:21→12:37)
[2023-06-29] MEDS: HYDROmorphone INJ 0.5 MG/0.5 ML SYR IV PRN ×5 (02:28→17:55)
[2023-06-29] MEDS: POTASSIUM CHLORIDE 20 MEQ in LACTATED RINGER'S 1,000 ML IV SCH ×2 (02:28→14:12)
[2023-06-29] MEDS: AMPICILLIN 2,000 MG in SODIUM CHLOR 0.9% AD-VAN 100 ML IV SCH ×3 (02:28→13:46)
[2023-06-29] MEDS: hydrOXYzine HCl 25 MG TAB PO PRN (02:38)
[2023-06-29] MEDS: PANTOprazole 40 MG in SYRINGE 0 ML IV SCH ×2 (08:38→21:49)
[2023-06-29] MEDS: LACTULOSE SYRUP 30 GM/45 ML UDP PO SCH (08:38)
[2023-06-29] MEDS: hydrALAZINE HCL 20 MG/ML VIAL IV SCH ×2 (08:39→17:36)
[2023-06-29] MEDS: DULoxetine HCL 30 MG CAP PO SCH (08:39)
[2023-06-29] MEDS: rifAXIMin 550 MG TABLET PO SCH (08:39)
[2023-06-29] MEDS: OXYBUTYNIN CHLORIDE XL 5 MG TABCR PO SCH (08:40)
[2023-06-29] MEDS: UMECLIDINIUM BROMIDE 62.5MCG/BLISTER 7 PUFFS/INHALER INH SCH (08:40)
[2023-06-29] MEDS: PANTOprazole 40 MG TAB PO SCH (08:40)
[2023-06-29] MEDS: ISOSORBIDE MONO EXTENDED REL 30 MG TABCR PO SCH (08:40)
[2023-06-29] MEDS: POLYETHYLENE (MIRALAX) 17 GM PACK PO SCH (08:40)
[2023-06-29] MEDS: oxyCODONE HCL 20 MG TABCR (OxyCONTIN) PO SCH (08:43)
[2023-06-29] MEDS: PREGABALIN 150 MG CAP PO SCH (08:43)
[2023-06-29] MEDS ORDERED: SENNA 8.6 MG TAB PO SCH (09:00)
[2023-06-29] MEDS ORDERED: DOCUSATE SODIUM 100 MG CAP PO SCH (09:00)
--- NOTE | 2023-06-29 10:56 | Communication Note ---
Date of Service: June 29, 2023 Our office will be in contact with this patient to arrange an outpatient EGD for her dysphagia as well as her esophageal variceal surveillance. In the interim, would advise continuing to titrate Lactulose to increase daily bowel movements. Can add additional OTC constipation meds prn. When ileus improves, consider barium swallow as inpatient.
--- NOTE | 2023-06-29 11:24 | Hospitalist Progress Note ---
Date of Service June 29, 2023 Assessment & Plan (1) Mesenteric ischemia: Plan: Today with worsening abdominal pain and distention, no rebound or guarding, STAT CT obtained CTAP with evidence of possible bowel ischemia Strict NPO, transition Abx to Zosyn for broad spectrum coverage STAT General Surgery consult added, case discussed with Dr. Wilfredo Broussard who suspects patient needs urgent transfer Will discuss with patient and family, patient was having difficulty understanding the gravity of the situation so I have asked family to be involved as well (2) Complicated UTI (urinary tract infection): Plan: Catheter-associated UTI Has chronic Pena due to urinary retention, [place] [facility] [place] [facility] [place] without obstructing lesion in the urinary tract Recent cystoscopy done [place] [facility] [place] [facility] show considerable bladder wall inflammation but no obvious vesicular fistula tract, however reportedly will need repeat study to confirm Cultures this admission grew out "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 faecalis, both sensitive to ampicillin, continue Zosyn for now as above (3) Urinary retention: Plan: 2nd to recurrent UTIs, neurogenic causes, etc Has bladder stimulator but has not helped Has pena in place [place] [facility] [place] [facility] (4) Ileus: Plan: Had NGT placed however given improvement and Hx esophageal varices have removed this KUB 06/28 with mild gaseous distention and moderate fecal retention CTAP 06/29 with possible ileus and possible ischemia as above NPO, IVF, suppositories if necessary for BMs Stool studies ordered for diarrhea have not yet been collected. C diff negative 06/27 (5) Gross hematuria: Plan: 2nd to hemorrhagic cystitis H/H stable (6) CAD (coronary artery disease): Plan: no ischemic issues at this time (7) Psoriasis: Plan: on apremilast BID chronically for such No evidence of rash, did discuss moisturization as patient has dry skin and this worsens itching and rashes Hydroxyzine prn (8) GERD (gastroesophageal reflux disease): Plan: Continue PPI IV BID (9) Chronic pain: Plan: Dilaudid prn pain for now while NPO (10) Cirrhosis: Plan: Cont lactulose, rifaximin Missed EGD outpatient due to admission (was for worsening Sx and surveillance EGD), reports worsening dysphagia and upper abd pain with Hx cirrhosis/varices GI to consider barium swallow once ileus improves, with outpatient EGD Plan General Surgery to see, likely plan for transfer, ongoing process Admission and Anticipated Discharge Date Admission Date: June 25, 2023 Subjective Overnight admits to some increase in her abdominal firmness and bloating, pain is about the same today as yesterday. Does not endorse nausea. Denies fevers. Physical Exam Constitutional: WD/WN, vitals as above Respiratory: normal respiratory effort, lungs clear to auscultation Cardiovascular: RRR, no murmur, no edema Gastrointestinal (Abdomen): normal BS, abdomen more firm and distended today, moderately diffusely tender, no rebound or guarding Skin: no clear discernable rash but some areas of scabbing and excoriation Psychiatric: A+Ox3, euthymic affect Results & Data Results & Data Vital Signs (Past 12 Hours) Vital Signs Temp Pulse Resp BP BP Pulse Ox O2 Del Method 06/29/23 07:18 37.4 C 75 15 159/79 H 91 Room Air 06/28/23 23:51 37.3 C 76 16 146/71 H 95 Room Air PG Care Time/CCT Total # of Minutes Spent Total Time Spent with Patient: Total time spent is greater than 50% in coordination of care (as documented) at patient's floor/unit and/or counseling patient: Coding Level of Care Code 64929 SUB INP/OBS CARE 3/50MIN Diagnoses Mesenteric ischemia K55.9 Complicated UTI (urinary tract infection) N39.0 Urinary retention R33.9 Ileus K56.7 Gross hematuria R31.0 CAD (coronary artery disease) I25.10 Psoriasis L40.9 GERD (gastroesophageal reflux disease) K21.9 Chronic pain G89.29 Cirrhosis K74.60
[2023-06-29] MEDS: tiZANidine HCL 4 MG TABLET PO PRN (13:49)
[2023-06-29] MEDS ORDERED: OPTIRAY 320 100ml IV ONE (15:06)
[2023-06-29] MEDS: oxyCODONE HCL IR 5 MG TAB (IMMEDIATE RELEASE) PO PRN (15:30)
--- NOTE | 2023-06-29 16:38 | CT Scan Report ---
ABDOMEN AND PELVIS CT WITH IV CONTRAST CT DOSE: 1514.05 mGy.cm HISTORY: Generalized abdominal pain. eval for worsening abd pathology TECHNIQUE: Multiaxial CT images of the abdomen and pelvis were performed following the use of intrave nous contrast. A dose lowering technique was utilized adhering to the principles of ALARA. COMPARISON STUDY: Abdomen and pelvis CT 06/26/2023. FINDINGS: Bibasilar linear densities consistent with subsegmental atelectasis. No pneumoperitoneum. N o pneumatosis. Degenerative changes within the lumbar spine and hips again noted. Postoperative mcdaniels es within the lumbar spine. A sacral stimulator device is again noted. No acute fractures. Advanced c oronary artery calcifications. Cirrhotic liver demonstrating heterogeneous enhancement. There are few subcentimeter hypodense lesions within the right hepatic lobe. These are technically too small to ch aracterize but may represent cysts. Stable exophytic 2 cm hypodense lesion within the right hepatic l obe posteriorly. This may also represent a small cyst. The spleen remains enlarged measuring 14 cm in length. Mild nodular thickening of the adrenal glands, unchanged. The pancreas is unremarkable. Stab le calcified gallbladder polyp. No significant gallbladder wall thickening. Right-sided nephrolithias is. No ureteral stones. No hydronephrosis. The main portal vein is patent. There is a punctate focus of gas at the portosplenic confluence on image 130. There are additional punctate foci of mesenteric gas within the right side of the abdomen on images 131 and 113. Findings raise the possibility of bow el ischemia. No definite pneumatosis identified. The foci of mesenteric gas adjacent to the residual right colon. Prior right hemicolectomy with ileocolonic anastomosis. Question mild thickening of the distal sigmoid colon. Multiple colonic diverticula are noted. The large bowel is mildly distended and filled with gas and stool. There are few mildly distended gas and fluid-filled loops of small bowel within the right side the abdomen. No evidence for bowel obstruction at this time. Trace perihepatic ascites is again noted. The bladder completely decompressed by Serrano catheter. Bladder wall thickenin g and adjacent fat stranding persists. There is a small stone within the right side of the bladder, u nchanged. The major mesenteric vessels appear patent. IMPRESSION: 1. Interval development of a few punctate foci of gas within the portal vein and within the mesenteri c veins along the right side of the abdomen. This is considered abnormal and raises the possibility o f underlying bowel ischemia. However, no definite pneumatosis identified at this time. No definite quang wel wall thickening along the right side the abdomen. However, there is questionable mild thickening within the distal sigmoid colon. 2. Mildly dilated gas and fluid-filled loops of small bowel within the right side of the abdomen and colon. This may represent an ileus. No evidence for bowel obstruction at this time. 3. Cirrhotic liver with splenomegaly and trace ascites. This remains unchanged. 4. Right-sided nephrolithiasis. No hydronephrosis. 5. Persistent bladder wall thickening with adjacent fat stranding. This is consistent with a cystitis . 6. The additional findings as described above. 7. This report was called/faxed to the referring physician following dictation. ACT 112: Negative or not required by law. Electronically signed by: Brian Adan M.D. 06/29/2023 4:36 PM
[2023-06-29] MEDS ORDERED: bisacodyL 10 MG SUPP PR PRN (17:40)
[2023-06-29] MEDS ORDERED: PIPERACILLIN/TAZOBACTAM 4.5 GM in DEXTROSE 5% 100 ML IV ONE (18:00)
--- NOTE | 2023-06-29 18:31 | Surgery Consultation ---
Date of Consultation June 29, 2023 Assessment & Plan (1) Ileus: (2) Cirrhosis: (3) CAD (coronary artery disease): (4) Complicated UTI (urinary tract infection): (5) Mesenteric ischemia: Plan This is a very complicated 72-year-old patient with multiple medical problems who presents with possible ischemic bowel. This is most likely bowel on the right side of the abdomen. She has an extensive surgical history including a prior right-sided colon resection. She has cirrhosis and varices. She had a drug-eluting stent placed 6 months ago and is currently on Plavix. I had a long discussion with her concerning the physical findings as well as the CT scan. A lactic acid is pending. I discussed with her that that if she did have an area of ischemic bowel, she would require an operation. Based on her complex medical history, I would recommend transfer to a tertiary care center where they have hepatology and cardiology services available in case of need. She is not sure whether she wants to undergo any operation. I continued the discussion, stressing the seriousness of the matter, and that she could get sick very quickly and might need immediate operative intervention. She states she will talk this over with her daughter who is an RN. Once again, I would recommend immediate transfer to a tertiary care center for this woman with potential ischemic bowel. We will continue to follow while she is here. History of Present Illness Reason for Consultation: possible ischemic bowel Requesting Physician: Ann-Marie Smith DO Attending Physician: Ann-Marie Smith DO History of Present Illness 72-year-old woman with multiple medical problems including Hernandez cirrhosis, esophageal varices, significant past cardiac history with DAISY placed 6 months ago on Plavix presents with right-sided abdominal pain and initial CT scan significant for ileus. She has an indwelling chronic Serrano catheter. She apparently has a possible colovesical fistula, however she has been deemed not a surgical candidate for a elective procedure by her patent leather sorter. She was admitted to the hospital with chronic UTI for IV antibiotics. She had an NG tube for the ileus. The NG tube was removed this morning. Since that time, she has had increasing distention and increasing fairly severe right-sided abdominal pain. A repeat CT scan demonstrates a few foci of gas in the portal system, mostly on the right side. This raises the concern for bowel ischemia. There is no pneumatosis seen on the CT scan. She denies fevers or chills. She denies nausea or vomiting. She is feeling quite bloated and is burping. Allergies Allergy/AdvReac Type Severity Reaction Status Date / Time morphine AdvReac Mild Vommitting, Verified 06/29/23 17:56 Diarrhea Home Medications Medication Instructions Recorded Confirmed Type apremilast 30 mg tablet (Otezla) 30 mg PO BID 04/26/23 06/25/23 History cholecalciferol (vitamin D3) 50 50 mcg PO DAILY 04/26/23 06/25/23 History mcg (2,000 unit) capsule docusate sodium 100 mg capsule 200 mg PO DAILY 04/26/23 06/25/23 History (Colace) hydroxyzine HCl 25 mg tablet 25 mg PO DAILY PRN Other 04/26/23 06/25/23 History lactulose 10 gram/15 mL oral 45 ml PO DAILY 04/26/23 06/25/23 History solution magnesium 200 mg tablet 400 mg PO DAILY 04/26/23 06/25/23 History nitroglycerin 0.4 mg sublingual 0.4 mg sublingual Q5M PRN Other 04/26/23 06/25/23 History tablet oxybutynin chloride 10 mg 10 mg PO DAILY #30 tabs 04/26/23 06/25/23 Rx tablet,extended release 24 hr oxycodone 10 mg tablet 10 mg PO Q6H PRN breakthrough pain 04/26/23 06/25/23 History oxycodone 20 mg tablet 20 mg PO BID 04/26/23 06/25/23 History pantoprazole 40 mg tablet,delayed 40 mg PO DAILY 04/26/23 06/25/23 History release (Protonix) polyethylene glycol 3350 17 17 g PO DAILY 04/26/23 06/25/23 History gram/dose oral powder (Miralax) pregabalin 300 mg capsule (Lyrica) 300 mg PO BID 04/26/23 06/25/23 History rifaximin 550 mg tablet (Xifaxan) 550 mg PO BID 04/26/23 06/25/23 History ropinirole 0.5 mg tablet 0.5 mg PO QPM 04/26/23 06/25/23 History semaglutide 0.25 mg or 0.5 mg (2 0.5 mg subcut .weekly 04/26/23 06/25/23 History mg/3 mL) subcutaneous pen injector (Ozempic) tizanidine 4 mg capsule (Zanaflex) 4 mg PO Q6H PRN Other 04/26/23 06/25/23 History umeclidinium 62.5 mcg/actuation 1 inh inhalation DAILY 04/26/23 06/25/23 History blister powder for inhalation (Incruse Ellipta) cyanocobalamin (vitamin B-12) See Rx Instructions .Route .COMPLEX 06/25/23 06/25/23 History 1,000 mcg/mL injection solution duloxetine 30 mg capsule,delayed 30 mg PO DAILY 06/25/23 06/25/23 History release isosorbide mononitrate 30 mg 30 mg PO DAILY 06/25/23 06/25/23 History tablet,extended release 24 hr ondansetron HCl 4 mg tablet See Rx Instructions .Route .COMPLEX 06/25/23 06/25/23 History Patient History Medical History CAD (coronary artery disease) Chronic pain GERD (gastroesophageal reflux disease) Gross hematuria Psoriasis Urinary retention Social History Smoking Status: Former smoker Hx Alcohol Use: No Hx Substance Use: No Preferred Language: Greenlandic Communication Ability: Effective Rotary Cutter Required: No Beliefs That Will Affect Care: None Current Living Situation: Alone Other Information That Helps Us Care for You: No Feels Safe at Home: Yes Safety Concerns: Feels Safe At This Time Assistive Devices: Glasses, Lift Chair and Wheelchair Physical Exam Constitutional: WD/WN, vitals as above Eyes: PERRL, conjunctivae normal, anicteric sclerae Neck: trachea midline, no thyromegaly Respiratory: normal respiratory effort; no respiratory distress and no labored breathing Cardiovascular: Rate/Rhythm: regular rate and regular rhythm Gastrointestinal (Abdomen): Inspection/Auscultation: abdomen normal to inspection and + abdomen distended (Moderate to severe distention) Percussion/Palpation: + abdomen tender (Right upper and lower quadrants) and abdomen soft; no guarding and abdomen not rigid Skin: no rashes, warm and dry Psychiatric: A+Ox3, euthymic affect Results & Data Vital Signs (Past 12 Hours) Vital Signs Temp Pulse Resp BP BP Pulse Ox O2 Del Method 06/29/23 17:00 36.7 C 80 15 125/74 93 Room Air 06/29/23 15:39 36.4 C L 75 15 109/67 93 Room Air 06/29/23 07:18 37.4 C 75 15 159/79 H 91 Room Air Laboratory Results 06/29/23 06/29/23 06/28/23 Range/Units 11:47 05:44 23:48 POC Glucose 125 H 123 H 105 H (70-99) mg/dl Diagnostic Findings ABDOMEN AND PELVIS CT WITH IV CONTRAST CT DOSE: 1514.05 mGy.cm HISTORY: Generalized abdominal pain. eval for worsening abd pathology TECHNIQUE: Multiaxial CT images of the abdomen and pelvis were performed following the use of intravenous contrast. A dose lowering technique was utilized adhering to the principles of ALARA. COMPARISON STUDY: Abdomen and pelvis CT 06/26/2023. FINDINGS: Bibasilar linear densities consistent with subsegmental atelectasis. No pneumoperitoneum. No pneumatosis. Degenerative changes within the lumbar spine and hips again noted. Postoperative changes within the lumbar spine. A sacral stimulator device is again noted. No acute fractures. Advanced coronary artery calcifications. Cirrhotic liver demonstrating heterogeneous enhancement. There are few subcentimeter hypodense lesions within the right hepatic lobe. These are technically too small to characterize but may represent cysts. Stable exophytic 2 cm hypodense lesion within the right hepatic lobe posteriorly. This may also represent a small cyst. The spleen remains enlarged measuring 14 cm in length. Mild nodular thickening of the adrenal glands, unchanged. The pancreas is unremarkable. Stable calcified gallbladder polyp. No significant gallbladder wall thickening. Right-sided nephrolithiasis. No ureteral stones. No hydronephrosis. The main portal vein is patent. There is a punctate focus of gas at the portosplenic confluence on image 130. There are additional punctate foci of mesenteric gas within the right side of the abdomen on images 131 and 113. Findings raise the possibility of bowel ischemia. No definite pneumatosis identified. The foci of mesenteric gas adjacent to the residual right colon. Prior right hemicolectomy with ileocolonic anastomosis. Question mild thickening of the distal sigmoid colon. Multiple colonic diverticula are noted. The large bowel is mildly distended and filled with gas and stool. There are few mildly distended gas and fluid-filled loops of small bowel within the right side the abdomen. No evidence for bowel obstruction at this time. Trace perihepatic ascites is again noted. The bladder completely decompressed by Serrano catheter. Bladder wall thickening and adjacent fat stranding persists. There is a small stone within the right side of the bladder, unchanged. The major mesenteric vessels appear patent. IMPRESSION: 1. Interval development of a few punctate foci of gas within the portal vein and within the mesenteric veins along the right side of the abdomen. This is considered abnormal and raises the possibility of underlying bowel ischemia. However, no definite pneumatosis identified at this time. No definite bowel wall thickening along the right side the abdomen. However, there is questionable mild thickening within the distal sigmoid colon. 2. Mildly dilated gas and fluid-filled loops of small bowel within the right side of the abdomen and colon. This may represent an ileus. No evidence for bowel obstruction at this time. 3. Cirrhotic liver with splenomegaly and trace ascites. This remains unchanged. 4. Right-sided nephrolithiasis. No hydronephrosis. 5. Persistent bladder wall thickening with adjacent fat stranding. This is consistent with a cystitis. 6. The additional findings as described above. 7. This report was called/faxed to the referring physician following dictation.
[2023-06-29] MEDS ORDERED: HYDROmorphone INJ 0.5 MG/0.5 ML SYR IV PRN (19:04)
--- NOTE | 2023-06-29 19:11 | Communication Note ---
Date of Service: June 29, 2023 30 minute discussion had with patient after discussing her case with ICU overnight provider and General Surgeon revenue liaison Dr. Broussard. Discussed that her CT scan shows areas suggesting right abdominal bowel ischemia, that would be recommended for urgent surgical intervention. Because of her numerous comorbidities, including DM2, CAD with recent drug-eluting stent 6 months ago, Hx right sided colon resection, and cirrhosis, she would be more appropriate for surgical intervention at a tertiary facility. She told me that her Laundry Machine Operator told her that she "would not survive surgeries", or that her quality of life would be significantly diminished if she needed a surgery. I discussed with her that given this is an emergency situation, with an intestinal condition that very reasonably could lead to her , we would still recommend transfer given her immediate risks. She told me that her pain is her biggest concern at this time, and that she has been "asking the Lord to take her" for some time, and has ultimately come to peace with the possibility of . She reports that she is DNR/DNI, and does not want any escalation of care further than pain medications, IV antibiotics, and IV fluids to give her belly "a chance". She has discussed hospice and palliative care in the past with other providers, and dealt with hospice with the passing of her father, and desires comfort care and pain control above all else should she decline clinically from her ileus/bowel ischemia. She was able to appropriately repeat my medical concerns back to me, and able to describe the risks associated with not transferring and having surgery for bowel ischemia. For now, will move patient to a monitored bed on tele floor, in order to monitor vitals and assess her pain frequently. Zosyn was added for broad spectrum intraabdominal pathology coverage. Strict NPO at this time including all medications (many switched to IV as able). Continue IV fluids, IV pain control with Dilaudid 1mg q2h prn severe pain. Plan is to deescalate care and move to comfort care with aggressive pain control if patient should clinically decompensate overnight. Lactate 0.7, labwork including CBC/CMP is pending. Attempt made to call Marco Antonio, patient's son, however he did not answer the phone. Message left on voicemail. Spoke with patient's daughter, Peri (phone number [phone]), who also talked to her mother and corroborated that patient described being tired, wants to be pain free if things were to worsen. Peri's information added to contact info for patient. Night hospitalist service made aware of patient's clinical condition.
[2023-06-29 19:40] LABS: Basophils # (auto) 0.02 K/uL (0-0.2); Basophils % (auto) 0.5 %; Eosinophils # (auto) 0.16 K/uL (0-0.50); Eosinophils % (auto) 3.7 %; Hematocrit (blood only) 32.8 % (37.0-47.0); Hemoglobin 10.2 g/dl (12.0-16.0); Immature Granulocytes # (auto) 0.01 K/uL (0.01-0.20); Immature Granulocytes % (auto) 0.2 %; Lymphocytes # (auto) 0.86 K/uL (1.2-3.4); Lymphocytes % (auto) 19.7 %; Mean Corpuscular Hemoglobin 25.6 pg (25.0-34.0); Mean Corpuscular Hgb Conc 31.1 g/dL (32.0-36.0); Mean Corpuscular Volume 82.2 fL (80.0-100.0); Mean Platelet Volume 11.5 fL (9.4-12.4); Monocytes # (auto) 0.34 K/uL (0.11-0.59); Monocytes % (auto) 7.8 %; Neutrophils # (auto) 2.98 K/uL (1.40-6.50); Neutrophils % (auto) 68.1 %; Platelet Count 117 K/uL (130-400); RDW Coefficient of Variation 16.4 % (11.5-14.5); Red Blood Count 3.99 M/uL (4.20-5.40); White Blood Count 4.37 K/ul (4.8-10.8)
[2023-06-29 19:45] LABS: BUN Creatinine Ratio 13.3 (10-20); Calcium 9.3 mg/dl (8.6-10.3); Creatinine Clr Calc Pharmacy 96.8 ml/min; Est GFR (African American) 105.5 ml/min; Est GFR (Non-African American) 91.1 ml/min
[2023-06-29] MEDS: HYDROmorphone INJ 1 MG/ML SYRINGE IV PRN ×2 (20:29→23:15)
--- NOTE | 2023-06-29 20:44 | Communication Note ---
Date of Service: June 29, 2023 Given presence of ileus with now evidence of bowel ischemia, benefit of NGT outweighs risk of bleeding from varices. Discussed risks and benefits with paulina campo, she felt better with NGT previously and is amenable despite risk of bleeding. Also have ordered CTA abdomen to eval for occlusive cause of CT findings. Creatinine 0.6. Therapeutic anticoagulation if occlusive cause is found. Patient desires no further procedures so would likely not pursue embolectomy.
[2023-06-29] MEDS ORDERED: IOVERSOL 350 MG 125mL Prefilled Syringe IV ONE (20:56)
[2023-06-29] MEDS ORDERED: LACTULOSE SYRUP 30 GM/45 ML UDP PO SCH (21:00)
[2023-06-29] MEDS ORDERED: ACETAMINOPHEN 1,000 MG/100 ML VIAL IV PRN (21:54)
[2023-06-29] MEDS ORDERED: ACETAMINOPHEN 1000 MG/100 ML IV IV ONE (21:59)
--- NOTE | 2023-06-29 22:20 | CT Scan Report ---
Exam(s): CTA ABDOMEN + PELVIS With Contrast IV Amt: 114 ML OPTIRAY 350 EXAM: CT Angiography Abdomen and Pelvis With Intravenous Contrast CLINICAL HISTORY: Reason for exam: Eval for mesenteric arterial occlusion. TECHNIQUE: Axial computed tomographic angiography images of the abdomen and pelvis with intravenous contrast. CTDI is 27.7 mGy and DLP is 1407 mGy-cm. Automated exposure control was utilized for the study. A dose lowering technique was utilized adhering to the principles of ALARA. MIP reconstructed images were created and reviewed. Coronal and sagittal reformatted images were created and reviewed. CONTRAST: Patient received 114 ML OPTIRAY 350 of IV contrast COMPARISON: June 26, 2023 FINDINGS: VASCULATURE: Aorta: The abdominal aorta is mildly calcified and tortuous but nondilated and widely patent. No aneurysm or dissection. Celiac trunk and mesenteric arteries: The celiac and superior mesenteric arteries are widely patent and unremarkable. The inferior mesenteric artery is widely patent. No occlusion or significant stenosis. Renal arteries: No acute findings. No occlusion or significant stenosis. Iliac arteries: No acute findings. No occlusion or significant stenosis. Lung bases: Unremarkable. No mass. No consolidation. ABDOMEN: Liver: The liver is enlarged measuring 25 cm craniocaudad with mild fatty infiltration. There is a nodular liver surface suggesting possible cirrhosis. There is a trace amount of ascites adjacent to the liver measuring up to 1.5 cm thick. Gallbladder and bile ducts: Unremarkable. No calcified stones. No ductal dilation. Pancreas: Unremarkable. No ductal dilation. No mass. Spleen: Unremarkable. No splenomegaly. Adrenals: Unremarkable. No mass. Kidneys and ureters: Unremarkable. No hydronephrosis. No solid mass. Stomach and bowel: Line of marleny from previous bowel anastomosis involving the right colon. There are several scattered gas fluid levels in the proximal colon suggesting mild ileus. No acute inflammation is identified. No obstruction. No mucosal thickening. PELVIS: Appendix: No findings to suggest acute appendicitis. Bladder: The urinary bladder is completely decompressed around a Serrano catheter. There is mild bladder wall thickening suggesting possible cystitis. There is a calcification in the wall of the urinary bladder measuring 6 mm on the right. Reproductive: Unremarkable as visualized. ABDOMEN and PELVIS: Intraperitoneal space: See above. Bones/joints: Moderate multilevel degenerative changes throughout the lumbar spine. There is previous laminectomy from L2-L4 5. No acute fracture or traumatic subluxation. There is a spinal stimulating device in place. Soft tissues: Unremarkable. Lymph nodes: Unremarkable. No enlarged lymph nodes. IMPRESSION: 1. The urinary bladder is completely decompressed around a Serrano catheter. There is mild bladder wall thickening suggesting possible cystitis. There is a calcification in the wall of the urinary bladder measuring 6 mm on the right. 2. The liver is enlarged measuring 25 cm craniocaudad with mild fatty infiltration. There is a nodular liver surface suggesting possible cirrhosis. There is a trace amount of ascites adjacent to the liver measuring up to 1.5 cm thick. 3. Line of marleny from previous bowel anastomosis involving the right colon. There are several scattered gas fluid levels in the proximal colon suggesting mild ileus. No acute inflammation is identified. 4. No aortic aneurysm or dissection. The mesenteric vessels are widely patent and unremarkable. Electronically signed by: Titus Lamar MD 06/29/23 22:19 PM
--- NOTE | 2023-06-29 23:45 | XRay Report ---
SINGLE VIEW CHEST CLINICAL HISTORY: Enteric tube placement. FINDINGS: An AP, portable, upright chest radiograph is obtained. No prior studies are available for c omparison at the time of dictation. The cardiomediastinal silhouette is top normal for projection. An enteric tube has been placed. The t ip projects just below the diaphragm over the proximal stomach. There is mild bibasilar scarring/atel ectasis. No airspace consolidation or large pleural effusion is identified. No pneumothorax is seen. The skeletal structures are osteopenic. The bony thorax is grossly intact. Bilateral shoulder arthrop lasties are in place. An electronic device projects over the right mid abdomen. IMPRESSION: 1. The lungs are clear. 2. An enteric tube has been placed as above. This should likely be advanced. ACT 112: Negative or not required by law. Electronically signed by: Garfield Plata M.D. 06/29/2023 11:42 PM
[2023-06-30] MEDS: POTASSIUM CHLORIDE 20 MEQ in LACTATED RINGER'S 1,000 ML IV SCH ×3 (00:05→20:07)
[2023-06-30] MEDS: PIPERACILLIN/TAZOBACTAM 4.5 GM in DEXTROSE 5% 100 ML IV SCH ×4 (00:06→23:09)
[2023-06-30] MEDS: INSULIN ASPART PER UNIT CHARGE SC SCH ×4 (00:27→18:59)
[2023-06-30] MEDS: HYDROmorphone INJ 1 MG/ML SYRINGE IV PRN ×5 (04:18→13:06)
[2023-06-30] MEDS: ONDANSETRON INJ 2 MG/ML 2 ML VIAL IV PRN ×2 (04:34→14:38)
[2023-06-30] MEDS ORDERED: ONDANSETRON 4 MG OD TAB PO STA (06:10)
[2023-06-30 06:16] LABS: Basophils # (auto) 0.02 K/uL (0-0.2); Basophils % (auto) 0.7 %; Eosinophils # (auto) 0.16 K/uL (0-0.50); Eosinophils % (auto) 5.5 %; Hematocrit (blood only) 34.6 % (37.0-47.0); Hemoglobin 10.7 g/dl (12.0-16.0); Immature Granulocytes # (auto) 0.01 K/uL (0.01-0.20); Immature Granulocytes % (auto) 0.3 %; Lymphocytes # (auto) 0.46 K/uL (1.2-3.4); Lymphocytes % (auto) 15.7 %; Mean Corpuscular Hemoglobin 25.4 pg (25.0-34.0); Mean Corpuscular Hgb Conc 30.9 g/dL (32.0-36.0); Mean Corpuscular Volume 82.2 fL (80.0-100.0); Mean Platelet Volume 10.7 fL (9.4-12.4); Monocytes # (auto) 0.25 K/uL (0.11-0.59); Monocytes % (auto) 8.5 %; Neutrophils # (auto) 2.03 K/uL (1.40-6.50); Neutrophils % (auto) 69.3 %; Platelet Count 106 K/uL (130-400); RDW Coefficient of Variation 16.5 % (11.5-14.5); RDW Standard Deviation 49.4 fL (36.4-46.3); Red Blood Count 4.21 M/uL (4.20-5.40); White Blood Count 2.93 K/ul (4.8-10.8)
[2023-06-30] MEDS ORDERED: ONDANSETRON INJ 2 MG/ML 2 ML VIAL IV STA (06:16)
[2023-06-30 06:23] LABS: BUN Creatinine Ratio 11.5 (10-20); Calcium 9.5 mg/dl (8.6-10.3); Creatinine Clr Calc Pharmacy 95.2 ml/min; Est GFR (Non-African American) 90.6 ml/min
--- NOTE | 2023-06-30 07:21 | Hospitalist Progress Note ---
Date of Service June 30, 2023 Assessment & Plan (1) Mesenteric ischemia: Plan: 06/29 with worsening abdominal pain and distention, no rebound or guarding, STAT CT obtained CTAP with evidence of possible bowel ischemia CTA AP fortunately without evidence of mesenteric arterial occlusion Strict NPO, NG tube placed with some mild improvement in abdominal distention, continue Zosyn for broad spectrum coverage STAT General Surgery consult with Dr. Broussard, recommended transfer for likely urgent ex lap After discussion with patient and family, she declines transfer for surgery, try non-surgical measures and if symptoms/clinical picture worsening transition to comfort-based approach Palliative Care consulted, comfort based approach with plan for transition to hospice on discharge, discussed with patient and her son Currently receiving Dilaudid 1.5 mg every 2 hours as needed for pain, did also add diazepam 2 mg BID for abdominal/back spasm (2) Ileus: Plan: KUB 06/28 with mild gaseous distention and moderate fecal retention CTAP 06/29 with possible ileus and possible ischemia as above NPO, IVF, suppositories if necessary for BMs, NGT to LIS Stool studies ordered for diarrhea have not yet been collected. 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 faecalis, both sensitive to ampicillin, continue Zosyn through 07/01 and then can stop for completed UTI course (4) Urinary retention: Plan: 2nd to recurrent UTIs, neurogenic causes, etc Has bladder stimulator but has not helped Has pena in place Follows with [facility] (5) Gross hematuria: Plan: 2nd to hemorrhagic cystitis H/H stable (6) CAD (coronary artery disease): Plan: no ischemic issues at this time (7) Psoriasis: Plan: on apremilast BID chronically for such No evidence of rash, did discuss moisturization as patient has dry skin and this worsens itching and rashes Hydroxyzine prn (8) GERD (gastroesophageal reflux disease): Plan: Continue PPI IV BID (9) Chronic pain: Plan: Dilaudid prn pain for now while NPO (10) Cirrhosis: Plan: Cont lactulose, rifaximin Missed EGD outpatient due to admission (was for worsening Sx and surveillance EGD), reports worsening dysphagia and upper abd pain with Hx cirrhosis/varices GI to consider barium swallow if symptoms improve, with outpatient EGD Plan General Surgery to see, likely plan for transfer, ongoing process Admission and Anticipated Discharge Date Admission Date: June 25, 2023 Subjective Overnight minimal improvement in symptoms with NGT, noted on CXR to not be advanced far enough, re-image after advancement is pending. Not febrile overnight and vitals remain stable. Physical Exam Constitutional: WD/WN, vitals as above Respiratory: normal respiratory effort, lungs clear to auscultation Cardiovascular: RRR, no murmur, no edema Gastrointestinal (Abdomen): distended, tympanic, positive BS, tender to palpation NGT in place, green clear output Skin: no clear discernable rash but some areas of scabbing and excoriation Psychiatric: A+Ox3, euthymic affect Results & Data Results & Data Vital Signs (Past 12 Hours) Vital Signs Temp Pulse Pulse Resp BP Pulse Ox O2 Del Method 06/30/23 00:00 70 06/29/23 20:20 64 06/30/23 03:21 36.9 C 94 H 18 177/79 H 95 Nasal Cannula 06/29/23 19:35 Nasal Cannula 06/30/23 00:02 37.0 C 68 20 156/74 H 96 Nasal Cannula O2 Flow Rate 06/30/23 00:00 06/29/23 20:20 06/30/23 03:21 2.0 06/29/23 19:35 2 06/30/23 00:02 2.0 PG Care Time/CCT Total # of Minutes Spent Total Time Spent with Patient: Total time spent is greater than 50% in coordination of care (as documented) at patient's floor/unit and/or counseling patient: Coding Level of Care Code 93371 SUB INP/OBS CARE 3/50MIN Diagnoses Mesenteric ischemia K55.9 Ileus K56.7 Complicated UTI (urinary tract infection) N39.0 Urinary retention R33.9 Gross hematuria R31.0 CAD (coronary artery disease) I25.10 Psoriasis L40.9 GERD (gastroesophageal reflux disease) K21.9 Chronic pain G89.29 Cirrhosis K74.60
[2023-06-30] MEDS: PANTOprazole 40 MG in SYRINGE 0 ML IV SCH ×2 (07:42→20:11)
--- NOTE | 2023-06-30 07:53 | XRay Report ---
SINGLE VIEW CHEST CLINICAL HISTORY: Enteric tube repositioning. FINDINGS: An AP, portable, upright chest radiograph is compared to study dated 06/29/2023. The examinat ion is degraded by portable technique and apical lordotic positioning. The heart is top normal for pr ojection. An enteric tube has been advanced. The tip now projects over the proximal to mid stomach. T here is mild bibasilar scarring/atelectasis. No airspace consolidation or large pleural effusion is i dentified. No pneumothorax is seen. The skeletal structures are osteopenic. The bony thorax is grossl y intact. Bilateral shoulder arthroplasties are in place. IMPRESSION: 1. The lungs are clear. 2. The enteric tube has been advanced. See above. ACT 112: Negative or not required by law. Electronically signed by: Garfield Plata M.D. 06/30/2023 7:52 AM
[2023-06-30] MEDS: UMECLIDINIUM BROMIDE 62.5MCG/BLISTER 7 PUFFS/INHALER INH SCH (08:09)
[2023-06-30] MEDS ORDERED: PROCHLORPERAZINE 10 MG in SYRINGE 8 ML IV PRN (08:54)
[2023-06-30] MEDS ORDERED: NITROGLYCERIN 2% OINTMENT 30GM TUBE EXT SCH (10:15)
--- NOTE | 2023-06-30 13:30 | Palliative Care Consultation ---
Date of Consultation June 30, 2023 Assessment & Plan (1) Chronic pain: She has a spinal cord stimulator and has been on chronic opioid therapy for this. (2) Upper abdominal pain: with mesenteric ischemia Persistent pain despite 5mg IV hydromorphone during twelve hours overnight. She complains most of pressure sensation which will likely not be relieved with hydromorphone. Continue NGT for decompression. Hydromorphone has been effective for stabbing pain more likely related to is chemia. Continue current dosing and monitor. (3) Nausea: Monitor with addition of compazine. Could consider low dose zyprexa ODT if NG and compazine are not effective. (4) Palliative care encounter: I talked with Mrs. Baltazar about how she is coping with her illness. She tells me that she has been in so much pain for so long that she doesn't want further treatment and is ready to . She has spoken with her son, Marco Antonio, who is her POA, about this on more than one occasion. We discussed relationship between chronic pain and depression and possibility that depression may be influencing her decision. She denies this. She does admit to feelings of depression at times and is on duloxetine but does not have feeling of hopelessness and does have kristen when being around her children and grandchildren. In April, she attended the graduation of her grandson which was very special to her. She tells me that even at that time, she was worried that her time was short. We talked about what it would look like to shift the focus of her care to comfort and symptom management, rather than disease management. While, ischemic bowel can certainly be associated with grave prognosis, it is not clear what her course will be at this time. Given her current status, she would likely not in the hospital while on comfort focused care. She asked about hospice and we talked about hospice benefit, services provided and supportive care at home. She does have a parts sales advisor caregiver, and Marco Antonio lives nearby, but she would need additional care at home beyond what hospice could provide. I also presented option from Dr. Ortega for trial of nitrates to potentially improve her perfusion. She is definitely not interested in further intervention s, surgical or otherwise. She would like to have symptom management while hospitalized with plan for discharge home with hospice if stable. When I spoke with Marco Antonio, he has a good understanding of her illness and absolutely supports her decision. He also did not want to try additional treatment interventions. Discussed with case management, RN and multiple extensive conversations with Dr. Ortega. History of Present Illness Reason for Consultation: Goals of care Requesting Physician: Dr. Ortega Attending Physician: Ann-Marie Smith, DO History of Present Illness 72 yo lady with cirrhosis and DICKSON, CAD with stent placement, diabetes, psoriatic arthritis and chronic back pain. She presented with abdominal pain and nausea. She was noted to have UTI. She has indwelling catheter for urinary retention. CT to evaluate her abdominal pain and distension was suggestive of ileus and she had NG tube placement. NGT was removed due to bleeding concern with her cirrhosis. CT also suggested mesenteric ischemia. She continues to have abdominal distention and pain. She complains of sharp intermittent pain across her upper and lower abdomen which is worse with movement. She also has constant pressure related pain in her abdomen. NGT was reinserted for relief of abdominal pressure. She complains of nausea which is not relieved with zofran or NGT. She has had a total NG output of 700cc documented since admission. She has been evaluated by surgery with recommendation for transfer to tertiary care for surgical intervention of her mesenteric ischemia. She has declined transfer. Allergies Allergy/AdvReac Type Severity Reaction Status Date / Time morphine AdvReac Mild Vommitting, Verified 06/29/23 17:56 Diarrhea Home Medications Medication Instructions Recorded Confirmed Type apremilast 30 mg tablet (Otezla) 30 mg PO BID 04/26/23 06/25/23 History cholecalciferol (vitamin D3) 50 50 mcg PO DAILY 04/26/23 06/25/23 History mcg (2,000 unit) capsule docusate sodium 100 mg capsule 200 mg PO DAILY 04/26/23 06/25/23 History (Colace) hydroxyzine HCl 25 mg tablet 25 mg PO DAILY PRN Other 04/26/23 06/25/23 History lactulose 10 gram/15 mL oral 45 ml PO DAILY 04/26/23 06/25/23 History solution magnesium 200 mg tablet 400 mg PO DAILY 04/26/23 06/25/23 History nitroglycerin 0.4 mg sublingual 0.4 mg sublingual Q5M PRN Other 04/26/23 06/25/23 History tablet oxybutynin chloride 10 mg 10 mg PO DAILY #30 tabs 04/26/23 06/25/23 Rx tablet,extended release 24 hr oxycodone 10 mg tablet 10 mg PO Q6H PRN breakthrough pain 04/26/23 06/25/23 History oxycodone 20 mg tablet 20 mg PO BID 04/26/23 06/25/23 History pantoprazole 40 mg tablet,delayed 40 mg PO DAILY 04/26/23 06/25/23 History release (Protonix) polyethylene glycol 3350 17 17 g PO DAILY 04/26/23 06/25/23 History gram/dose oral powder (Miralax) pregabalin 300 mg capsule (Lyrica) 300 mg PO BID 04/26/23 06/25/23 History rifaximin 550 mg tablet (Xifaxan) 550 mg PO BID 04/26/23 06/25/23 History ropinirole 0.5 mg tablet 0.5 mg PO QPM 04/26/23 06/25/23 History semaglutide 0.25 mg or 0.5 mg (2 0.5 mg subcut .weekly 04/26/23 06/25/23 History mg/3 mL) subcutaneous pen injector (Ozempic) tizanidine 4 mg capsule (Zanaflex) 4 mg PO Q6H PRN Other 04/26/23 06/25/23 History umeclidinium 62.5 mcg/actuation 1 inh inhalation DAILY 04/26/23 06/25/23 History blister powder for inhalation (Incruse Ellipta) cyanocobalamin (vitamin B-12) See Rx Instructions .Route .COMPLEX 06/25/23 06/25/23 History 1,000 mcg/mL injection solution duloxetine 30 mg capsule,delayed 30 mg PO DAILY 06/25/23 06/25/23 History release isosorbide mononitrate 30 mg 30 mg PO DAILY 06/25/23 06/25/23 History tablet,extended release 24 hr ondansetron HCl 4 mg tablet See Rx Instructions .Route .COMPLEX 06/25/23 06/25/23 History Patient History Medical History CAD (coronary artery disease) Chronic pain GERD (gastroesophageal reflux disease) Gross hematuria Psoriasis Urinary retention Social History Smoking Status: Former smoker Hx Alcohol Use: No Hx Substance Use: No Preferred Language: Pashto Communication Ability: Effective Parts Runner Required: No Beliefs That Will Affect Care: None Current Living Situation: Alone Other Information That Helps Us Care for You: No Feels Safe at Home: Yes Safety Concerns: Feels Safe At This Time Assistive Devices: Glasses, Lift Chair and Wheelchair Review of Systems Review of Systems: ESAS Pain 3/3 Dyspnea 0/3 Nausea 2/3 Drowsiness 0/3 Physical Exam Constitutional: no acute distress Respiratory: normal respiratory effort; no labored breathing Cardiovascular: Rate/Rhythm: regular rate and regular rhythm Gastrointestinal (Abdomen): distended, tympanic, positive BS, tender to palpation. Neurologic: Speech / Cognition: normal cognition Psychiatric: Orientation: oriented x 3 Affect: euthymic affect Results & Data Vital Signs (Past 12 Hours) Vital Signs Temp Pulse Resp BP Pulse Ox O2 Del Method O2 Flow Rate 06/30/23 10:53 97.5 F L 91 H 16 160/79 H 93 Room Air 06/30/23 07:54 97.5 F L 80 18 165/91 H 94 Room Air 06/30/23 03:21 98.4 F 94 H 18 177/79 H 95 Nasal Cannula 2.0 PG Care Time/CCT Total # of Minutes Spent Total Time Spent: 105 Total Time Spent with Patient: Total time spent is greater than 50% in coordination of care (as documented) at patient's floor/unit and/or counseling patient: [id number] goals of care, symptom management, prognosis, hospice, patient and family education and support, coordination of care Coding Level of Care Code 88393 INT INP/OBS CARE 3/75MIN Diagnoses Chronic pain G89.29 Upper abdominal pain R10.10 Nausea R11.0 Palliative care encounter Z51.5
[2023-06-30] MEDS ORDERED: fentaNYL citrate PF 100 MCG/2 ML VIAL IV ONE (14:38)
[2023-06-30] MEDS ORDERED: OLANZapine ZYDIS 5 MG ORALLY DIS. TAB PO PRN (15:11)
[2023-06-30] MEDS: HYDROmorphone INJ 0.5 MG/0.5 ML SYR IV PRN ×4 (16:02→23:03)
[2023-06-30] MEDS: ACETAMINOPHEN 1,000 MG/100 ML VIAL IV SCH ×2 (16:02→22:42)
[2023-06-30] MEDS: diazePAM 5 MG/ML 10ML VIAL IV PRN (22:04)
[2023-07-01] MEDS: INSULIN ASPART PER UNIT CHARGE SC SCH ×4 (00:26→18:14)
[2023-07-01] MEDS: HYDROmorphone INJ 0.5 MG/0.5 ML SYR IV PRN ×8 (02:21→22:14)
[2023-07-01] MEDS: diazePAM 5 MG/ML 10ML VIAL IV PRN ×2 (04:19→22:41)
[2023-07-01] MEDS: ONDANSETRON INJ 2 MG/ML 2 ML VIAL IV PRN (05:43)
[2023-07-01] MEDS: POTASSIUM CHLORIDE 20 MEQ in LACTATED RINGER'S 1,000 ML IV SCH ×3 (06:15→20:31)
--- NOTE | 2023-07-01 07:19 | Hospitalist Progress Note ---
Date of Service July 01, 2023 Assessment & Plan (1) Mesenteric ischemia: Plan: 06/29 with worsening abdominal pain and distention, no rebound or guarding, STAT CT obtained CTAP with evidence of possible bowel ischemia CTA AP fortunately without evidence of mesenteric arterial occlusion Strict NPO, NG tube placed with some mild improvement in abdominal distention STAT General Surgery consult with Dr. Broussard, recommended transfer for likely urgent ex lap After discussion with patient and family, she declines transfer for surgery, plan for comfort-focused care and home with hospice, discussed with patient and her son Currently receiving Dilaudid 1.5 mg every 2 hours as needed for pain, diazepam 2 mg BID for abdominal/back spasm, added glycopyrrolate for spasms (2) Ileus: Plan: KUB 06/28 with mild gaseous distention and moderate fecal retention CTAP 06/29 with ileus and possible ischemia as above NPO, IVF, suppositories as necessary for BMs, NGT to LIS Stool studies ordered for diarrhea have not yet been collected due to no BM. 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 faecalis, both sensitive to ampicillin, completed 7 days of IV Abx and have since been discontinued (4) Urinary retention: Plan: 2nd to recurrent UTIs, neurogenic causes, etc Has bladder stimulator but has not helped Has Serrano in place Follows with [facility] (5) Gross hematuria: Plan: 2nd to hemorrhagic cystitis H/H stable (6) CAD (coronary artery disease): Plan: No evidence of ACS (7) Psoriasis: Plan: On apremilast BID chronically for such No evidence of rash, did discuss moisturization as patient has dry skin and this worsens itching and rashes Benadryl prn itching (8) GERD (gastroesophageal reflux disease): Plan: Continue PPI IV BID (9) Chronic pain: Plan: Dilaudid prn pain for now while NPO (10) Cirrhosis: Plan: Missed EGD outpatient due to admission (was for worsening Sx and surveillance EGD), reports worsening dysphagia and upper abd pain with Hx cirrhosis/varices GI to consider barium swallow if symptoms improve, however will be going home with hospice Plan Comfort-focused care, monitoring pain and giving PRNs, awaiting set up at home for hospice Admission and Anticipated Discharge Date Admission Date: June 25, 2023 Subjective No acute events overnight. Spasms in her back a bit better with diazepam, belly a bit less bloated, passing gas but no BM yet. Physical Exam Constitutional: WD/WN, vitals as above Respiratory: normal respiratory effort, lungs clear to auscultation Cardiovascular: RRR, no murmur, no edema Gastrointestinal (Abdomen): distended, positive BS, tender to palpation NGT in place, green clear output Skin: no clear discernable rash but some areas of scabbing and excoriation Psychiatric: A+Ox3, euthymic affect Results & Data Results & Data Vital Signs (Past 12 Hours) Vital Signs Temp Pulse Pulse Resp BP BP Pulse Ox 07/01/23 03:08 36.6 C 90 18 184/95 H 97 06/30/23 23:35 36.8 C 81 18 184/83 H 90 06/30/23 23:12 94 H 06/30/23 21:56 209/89 H 218/101 H 06/30/23 19:56 36.8 C 106 H 20 204/69 H 93 O2 Del Method 07/01/23 03:08 Room Air 06/30/23 23:35 Room Air 06/30/23 23:12 06/30/23 21:56 06/30/23 19:56 Room Air PG Care Time/CCT Total # of Minutes Spent Total Time Spent with Patient: Total time spent is greater than 50% in coordination of care (as documented) at patient's floor/unit and/or counseling patient: Coding Level of Care Code 65744 SUB INP/OBS CARE 2/35MIN Diagnoses Mesenteric ischemia K55.9 Ileus K56.7 Complicated UTI (urinary tract infection) N39.0 Urinary retention R33.9 Gross hematuria R31.0 CAD (coronary artery disease) I25.10 Psoriasis L40.9 GERD (gastroesophageal reflux disease) K21.9 Chronic pain G89.29 Cirrhosis K74.60
[2023-07-01] MEDS: ACETAMINOPHEN 1,000 MG/100 ML VIAL IV SCH ×3 (09:19→22:41)
[2023-07-01] MEDS: UMECLIDINIUM BROMIDE 62.5MCG/BLISTER 7 PUFFS/INHALER INH SCH (09:20)
[2023-07-01] MEDS: PIPERACILLIN/TAZOBACTAM 4.5 GM in DEXTROSE 5% 100 ML IV SCH (09:20)
[2023-07-01] MEDS: PANTOprazole 40 MG in SYRINGE 0 ML IV SCH ×2 (09:20→20:31)
[2023-07-01] MEDS ORDERED: OLANZapine ZYDIS 5 MG ORALLY DIS. TAB PO STA (10:25)
--- NOTE | 2023-07-01 12:29 | Palliative Care Progress Note ---
Date of Service July 01, 2023 Assessment & Plan (1) Upper abdominal pain: Plan: with ileus and mesenteric ischemia With further discussion, there seems to be a spasmodic component to her pain which is not responding well to opioids. Will try glycopyrrolate with careful monitoring in combination with opioids in a lady with ileus. Ideally, if glycopyrrolate is effective, we can reduce opioid dose. (2) Chronic pain: Plan: She had been on oxycodone prior to admission as well as adjuvant duloxetine, tizanidine and pregabalin. Hopefully we will be able to remove NG and resume her po meds. (3) Nausea: Plan: No relief with compazine and zofran May be related to hydromorphone as she also has a history of nausea with morphine many years ago postoperatively. Trial low dose olanzapine. (4) Palliative care encounter: Plan: Mrs. Baltazar is quite clear that she does not want any life prolonging measures and wants the focus of her care to be comfort and symptom management. We discussed the antibiotics that she is currently on and she told me that she didn't see much sense in that and wanted to stop them. She asked about her prognosis. Without nutrition or hydration, she would likely have a prognosis of 2 weeks or less. She asked about going home, however, her symptoms are not adequately controlled at this point and she remains on NG suction. We would look to get her home on hospice if these issues can be resolved. Discussed with case management. Extensive discussion with Dr. Ortega Admission and Anticipated Discharge Date Admission Date: June 25, 2023 Subjective Complains of pain which she rates 9-10/10. Pain is sharp in her abdomen and also her chronic back pain. She notes pressure sensation is less. 300cc out NGT last 24 hours. She has had five doses of hydromorphone in last 12 hours. She reports that it does help but does not seem to last very long. (approx 150mg OME in 12 hours) Review of Systems Review of Systems: Pain 3/3 Dyspnea 0/3 Drowsiness 0/3 Nausea 2/3 Gastrointestinal: flatus Physical Exam Constitutional: no acute distress ENMT: NG tube to suction Respiratory: normal respiratory effort; no labored breathing Cardiovascular: Rate/Rhythm: regular rate and regular rhythm Gastrointestinal (Abdomen): distended, tender to palpation Neurologic: Speech / Cognition: normal cognition Results & Data Vital Signs (Past 12 Hours) Vital Signs Temp Pulse Pulse Resp BP BP Pulse Ox 07/01/23 11:05 98.8 F 95 H 16 178/100 H 99 07/01/23 08:16 97.5 F L 98 H 16 174/107 H 97 07/01/23 07:54 102 H 07/01/23 03:08 97.9 F 90 18 184/95 H 97 O2 Del Method 07/01/23 11:05 Room Air 07/01/23 08:16 Room Air 07/01/23 07:54 07/01/23 03:08 Room Air PG Care Time/CCT Total # of Minutes Spent Total Time Spent with Patient: Total time spent is greater than 50% in coordination of care (as documented) at patient's floor/unit and/or counseling patient: Coding Level of Care Code 22386 SUB INP/OBS CARE 3/50MIN Diagnoses Upper abdominal pain R10.10 Chronic pain G89.29 Nausea R11.0 Palliative care encounter Z51.5
[2023-07-01] MEDS: GLYCOPYRROLATE 0.2 MG/ML VIAL IV SCH ×2 (14:42→22:14)
[2023-07-01] MEDS ORDERED: diphenhydrAMINE 50 MG/ML VIAL IV PRN (17:36)
[2023-07-01] MEDS: OLANZapine ZYDIS 5 MG ORALLY DIS. TAB PO SCH (20:32)
[2023-07-02] MEDS: INSULIN ASPART PER UNIT CHARGE SC SCH ×4 (00:32→18:28)
[2023-07-02] MEDS: HYDROmorphone INJ 2 MG/ML SYR/VIAL IV PRN ×7 (03:06→20:57)
[2023-07-02] MEDS: GLYCOPYRROLATE 0.2 MG/ML VIAL IV SCH ×3 (05:26→21:00)
[2023-07-02] MEDS: POTASSIUM CHLORIDE 20 MEQ in LACTATED RINGER'S 1,000 ML IV SCH ×2 (05:27→21:00)
--- NOTE | 2023-07-02 07:25 | Hospitalist Progress Note ---
Date of Service July 02, 2023 Assessment & Plan (1) Mesenteric ischemia: Plan: 06/29 with worsening abdominal pain and distention, no rebound or guarding, STAT CT obtained CTAP with evidence of possible bowel ischemia CTA AP fortunately without evidence of mesenteric arterial occlusion NPO, NG tube placed with some mild improvement in abdominal distention STAT General Surgery consult with Dr. Broussard, recommended transfer for likely urgent ex lap After discussion with patient and family, she declines transfer for surgery, plan for comfort-focused care and home with hospice, discussed with patient and her son Currently receiving Dilaudid 1.5 mg every 2 hours as needed for pain, diazepam 2 mg BID for abdominal/back spasm, added glycopyrrolate for spasms with perhaps some relief Awaiting being able to arrange services for Tuesday vs. Tuesday (2) Ileus: Plan: KUB 06/28 with mild gaseous distention and moderate fecal retention CTAP 06/29 with ileus and possible ischemia as above NPO, IVF, suppositories as necessary for BMs, NGT to LIS Stool studies ordered for diarrhea have not yet been collected due to no BM. C diff negative 06/27 (3) Complicated UTI (urinary tract infection): Plan: Catheter-associated UTI Has chronic Serrano due to urinary retention, follows with [facility] CTAP without obstructing lesion in the urinary tract Recent cystoscopy done by [facility] show considerable bladder wall inflammation but no obvious vesicular fistula tract, however reportedly will need repeat study to confirm Cultures this admission grew out "deposit clerk species" and E. faecalis, both sensitive to ampicillin, completed 7 days of IV Abx and have since been discontinued (4) Urinary retention: Plan: 2nd to recurrent UTIs, neurogenic causes, etc Has bladder stimulator but has not helped Has Serrano in place Follows with [facility] (5) Gross hematuria: Plan: 2nd to hemorrhagic cystitis H/H stable (6) CAD (coronary artery disease): Plan: No evidence of ACS (7) Psoriasis: Plan: On apremilast BID chronically for such No evidence of rash, did discuss moisturization as patient has dry skin and this worsens itching and rashes Benadryl prn itching (8) GERD (gastroesophageal reflux disease): Plan: Continue PPI IV BID (9) Chronic pain: Plan: Dilaudid prn pain for now while NPO (10) Cirrhosis: Plan: Missed EGD outpatient due to admission (was for worsening Sx and surveillance EGD), reports worsening dysphagia and upper abd pain with Hx cirrhosis/varices GI to consider barium swallow if symptoms improve, however will be going home with hospice Plan Comfort-focused care, monitoring pain and giving PRNs, awaiting set up at home for hospice Admission and Anticipated Discharge Date Admission Date: June 25, 2023 Subjective Overnight with some abdominal pain and bloating, no worse than yesterday, does feel that her abdomen is a bit less distended. Passing gas, still no BM. No chest pain or SOB. Physical Exam Constitutional: WD/WN, vitals as above Respiratory: normal respiratory effort, lungs clear to auscultation Cardiovascular: RRR, no murmur, no edema Gastrointestinal (Abdomen): less distended,hypoactive BS, tender to palpation NGT in place, green clear output Skin: no clear discernable rash but some areas of scabbing and excoriation Psychiatric: A+Ox3, euthymic affect Results & Data Results & Data Vital Signs (Past 12 Hours) Vital Signs Temp Pulse Pulse Resp BP Pulse Ox O2 Del Method 07/02/23 03:52 36.7 C 97 H 18 169/96 H 94 Room Air 07/01/23 22:53 36.7 C 165 H 18 212/121 H 95 Room Air 07/01/23 22:48 88 PG Care Time/CCT Total # of Minutes Spent Total Time Spent with Patient: Total time spent is greater than 50% in coordination of care (as documented) at patient's floor/unit and/or counseling patient: Coding Level of Care Code 03008 SUB INP/OBS CARE 1/25MIN Diagnoses Mesenteric ischemia K55.9 Ileus K56.7 Complicated UTI (urinary tract infection) N39.0 Urinary retention R33.9 Gross hematuria R31.0 CAD (coronary artery disease) I25.10 Psoriasis L40.9 GERD (gastroesophageal reflux disease) K21.9 Chronic pain G89.29 Cirrhosis K74.60
[2023-07-02] MEDS: UMECLIDINIUM BROMIDE 62.5MCG/BLISTER 7 PUFFS/INHALER INH SCH (09:16)
[2023-07-02] MEDS: PANTOprazole 40 MG in SYRINGE 0 ML IV SCH ×2 (09:16→20:58)
[2023-07-02] MEDS: ACETAMINOPHEN 1,000 MG/100 ML VIAL IV SCH ×2 (09:17→15:40)
[2023-07-02] MEDS: OLANZapine ZYDIS 5 MG ORALLY DIS. TAB PO SCH (20:58)
[2023-07-03] MEDS: ACETAMINOPHEN 1,000 MG/100 ML VIAL IV SCH ×4 (00:04→23:32)
[2023-07-03] MEDS: INSULIN ASPART PER UNIT CHARGE SC SCH ×3 (00:05→12:12)
[2023-07-03] MEDS: COUGH DROP (SUGAR FREE) LOZ 24 LOZ/1 BOX BUCCAL PRN (05:23)
[2023-07-03] MEDS: GLYCOPYRROLATE 0.2 MG/ML VIAL IV SCH ×3 (05:23→21:48)
[2023-07-03] MEDS: HYDROmorphone INJ 2 MG/ML SYR/VIAL IV PRN ×8 (05:23→21:44)
[2023-07-03] MEDS: ONDANSETRON INJ 2 MG/ML 2 ML VIAL IV PRN (06:55)
[2023-07-03] MEDS: diazePAM 5 MG/ML 10ML VIAL IV PRN (06:55)
--- NOTE | 2023-07-03 07:08 | Hospitalist Progress Note ---
Date of Service July 03, 2023 Assessment & Plan (1) Mesenteric ischemia: Plan: 06/29 with worsening abdominal pain and distention, no rebound or guarding, STAT CT obtained CTAP with evidence of possible bowel ischemia CTA AP fortunately without evidence of mesenteric arterial occlusion STAT General Surgery consult with Dr. Broussard, recommended transfer for likely urgent ex lap NPO, NG tube placed with some mild improvement in abdominal distention, can continue this for comfort until discharge home After discussion with patient and family, she declines transfer for surgery, plan for comfort-focused care and home with hospice, discussed with patient and her son Currently receiving Dilaudid 2 mg every 2 hours as needed for pain (increased overnight 07/01), lorazepam as needed for anxiety/spasm/agitation, glycopyrrolate for spasms with some relief Awaiting being able to arrange services for home hospice Tuesday vs. Tuesday Moved to medical bed today as we facilitate her return home, and focus on comfort care (2) Ileus: Plan: KUB 06/28 with mild gaseous distention and moderate fecal retention CTAP 06/29 with ileus and possible ischemia as above NPO, IVF, suppositories as necessary for BMs, NGT to LIS (3) Complicated UTI (urinary tract infection): Plan: Catheter-associated UTI Has chronic Serrano due to urinary retention, follows with [facility] [place] without obstructing lesion in the urinary tract Recent cystoscopy done by [facility] show considerable bladder wall inflammation but no obvious vesicular fistula tract, however reportedly will need repeat study to confirm Cultures this admission grew out "chief business officer species" and E. faecalis, both sensitive to ampicillin, completed 7 days of IV Abx and have since been d iscontinued (4) Urinary retention: Plan: 2nd to recurrent UTIs, neurogenic causes, etc Has bladder stimulator but has not helped Has Serrano in place Follows with [facility] (5) Gross hematuria: Plan: 2nd to hemorrhagic cystitis H/H stable (6) CAD (coronary artery disease): Plan: No evidence of ACS (7) Psoriasis: Plan: On apremilast BID chronically for such No evidence of rash, did discuss moisturization as patient has dry skin and this worsens itching and rashes Benadryl prn itching (8) GERD (gastroesophageal reflux disease): Plan: Continue PPI IV BID (9) Chronic pain: Plan: Dilaudid prn pain for now while NPO; hopeful that she can transition to orals however given no BM still despite bowel regimen/suppositories Palliative Care to assist with this for return home (10) Cirrhosis: Plan: Missed EGD outpatient due to admission (was for worsening Sx and surveillance EGD), reports worsening dysphagia and upper abd pain with Hx cirrhosis/varices GI to consider barium swallow if symptoms improve, however will be going home with hospice Plan Comfort-focused care, monitoring pain and giving PRNs, awaiting set up at home for hospice (unable to facilitate over the weekend) Admission and Anticipated Discharge Date Admission Date: June 25, 2023 Subjective Ongoing complaints of intermittent pain relieved with prn medications. Denies chest pain or SOB. Physical Exam Constitutional: WD/WN, vitals as above Respiratory: normal respiratory effort, lungs clear to auscultation Cardiovascular: RRR, no murmur, no edema Gastrointestinal (Abdomen): less distended,hypoactive BS, tender to palpation NGT in place, green clear output Skin: no clear discernable rash but some areas of scabbing and excoriation Psychiatric: A+Ox3, euthymic affect Results & Data Results & Data Vital Signs (Past 12 Hours) Vital Signs Temp Pulse Pulse Resp BP Pulse Ox O2 Del Method 07/03/23 03:16 36.3 C L 97 H 18 199/84 H 95 Room Air 07/02/23 23:25 36.3 C L 105 H 18 154/80 H 92 Room Air 07/02/23 23:00 97 H 07/02/23 19:18 36.3 C L 72 18 174/80 H 97 Room Air PG Care Time/CCT Total # of Minutes Spent Total Time Spent with Patient: Total time spent is greater than 50% in coordination of care (as documented) at patient's floor/unit and/or counseling patient: Coding Level of Care Code 15710 SUB INP/OBS CARE 2/35MIN Diagnoses Mesenteric ischemia K55.9 Ileus K56.7 Complicated UTI (urinary tract infection) N39.0 Urinary retention R33.9 Gross hematuria R31.0 CAD (coronary artery disease) I25.10 Psoriasis L40.9 GERD (gastroesophageal reflux disease) K21.9 Chronic pain G89.29 Cirrhosis K74.60
[2023-07-03] MEDS: UMECLIDINIUM BROMIDE 62.5MCG/BLISTER 7 PUFFS/INHALER INH SCH (09:23)
[2023-07-03] MEDS: PANTOprazole 40 MG in SYRINGE 0 ML IV SCH ×2 (09:24→21:50)
[2023-07-03] MEDS: POTASSIUM CHLORIDE 20 MEQ in LACTATED RINGER'S 1,000 ML IV SCH ×2 (09:24→19:59)
[2023-07-03] MEDS ORDERED: ACETAMINOPHEN 650 MG SUPP PR PRN (12:26)
[2023-07-03] MEDS: DICLOFENAC SOD 1% GEL 100 GM TUBE EXT SCH (21:49)
[2023-07-03] MEDS: OLANZapine ZYDIS 5 MG ORALLY DIS. TAB PO SCH (21:49)
[2023-07-03] MEDS ORDERED: NITROGLYCERIN SL 0.4 MG/TAB TAB SL STA (23:07)
[2023-07-03] MEDS ORDERED: LABETALOL HCL IV 5 MG/ML 20ML IV STA (23:07)
[2023-07-03] MEDS ORDERED: hydrALAZINE HCL 20 MG/ML VIAL IV STA (23:14)
[2023-07-03] MEDS: LORazepam 2 MG/1 ML VIAL IV PRN (23:33)
[2023-07-04] MEDS: GLYCOPYRROLATE 0.2 MG/ML VIAL IV SCH (05:37)
[2023-07-04] MEDS: POTASSIUM CHLORIDE 20 MEQ in LACTATED RINGER'S 1,000 ML IV SCH (05:37)
[2023-07-04] MEDS: HYDROmorphone INJ 2 MG/ML SYR/VIAL IV PRN ×2 (07:36→09:42)
[2023-07-04] MEDS: ACETAMINOPHEN 1,000 MG/100 ML VIAL IV SCH ×3 (07:37→23:22)
[2023-07-04] MEDS: ONDANSETRON INJ 2 MG/ML 2 ML VIAL IV PRN ×2 (07:40→13:58)
[2023-07-04] MEDS: PANTOprazole 40 MG in SYRINGE 0 ML IV SCH ×2 (09:02→21:29)
[2023-07-04] MEDS: UMECLIDINIUM BROMIDE 62.5MCG/BLISTER 7 PUFFS/INHALER INH SCH (09:02)
[2023-07-04] MEDS: LORazepam 2 MG/1 ML VIAL IV PRN ×3 (09:02→21:36)
[2023-07-04] MEDS: DICLOFENAC SOD 1% GEL 100 GM TUBE EXT SCH ×2 (10:13→21:32)
[2023-07-04] MEDS ORDERED: tiZANidine HCL 4 MG TABLET PO PRN (11:10)
[2023-07-04] MEDS ORDERED: OLANZapine ZYDIS 5 MG ORALLY DIS. TAB PO STA (11:11)
[2023-07-04] MEDS ORDERED: HYDROmorphone/NSS 100 MG/100 ML BAG IV SCH ×2 (11:15→12:45)
--- NOTE | 2023-07-04 11:18 | Hospitalist Progress Note ---
Date of Service July 04, 2023 Assessment & Plan (1) Mesenteric ischemia: Plan: 06/29 with worsening abdominal pain and distention, no rebound or guarding, STAT CT obtained CTAP with evidence of possible bowel ischemia CTA AP fortunately without evidence of mesenteric arterial occlusion STAT General Surgery consult with Dr. Broussard, recommended transfer for likely urgent ex lap NPO, NG tube placed with some mild improvement in abdominal distention, can continue this for comfort until discharge home After discussion with patient and family, she declines transfer for surgery, plan for comfort-focused care and home with hospice, discussed with patient and her son Dilaudid gtt started today 1mg/hr continuous with 0.5mg q30min prn Lorazepam as needed for anxiety/spasm/agitation, resume home tizanidine Awaiting being able to arrange services for home hospice hopefully tomorrow Moved to medical bed as we facilitate her return home, and focus on comfort care (2) Ileus: Plan: KUB 06/28 with mild gaseous distention and moderate fecal retention CTAP 06/29 with ileus and possible ischemia as above Suppositories as necessary for BMs for comfort care (3) Complicated UTI (urinary tract infection): Plan: Catheter-associated UTI Has chronic Serrano due to urinary retention, follows with [facility] CTAP without obstructing lesion in the urinary tract Recent cystoscopy done by [facility] show considerable bladder wall inflammation but no obvious vesicular fistula tract, however reportedly will need repeat study to confirm Cultures this admission grew out "conservation scientist species" and E. faecalis, both sensitive to ampicillin, completed 7 days of IV Abx and have since been discontinued (4) Urinary retention: Plan: 2nd to recurrent UTIs, neurogenic causes, etc Has bladder stimulator but has not helped Has Serrano in place Follows with [facility] (5) Gross hematuria: Plan: 2nd to hemorrhagic cystitis H/H stable (6) CAD (coronary artery disease): Plan: No evidence of ACS (7) Psoriasis: Plan: On apremilast BID chronically for such No evidence of rash, did discuss moisturization as patient has dry skin and this worsens itching and rashes Benadryl prn itching (8) GERD (gastroesophageal reflux disease): Plan: Continue PPI IV BID (9) Chronic pain: Plan: Dilaudid prn pain for now while NPO; hopeful that she can transition to orals however given no BM still despite bowel regimen/suppositories Palliative Care to assist with this for return home (10) Cirrhosis: Plan: Missed EGD outpatient due to admission (was for worsening Sx and surveillance EGD), reports worsening dysphagia and upper abd pain with Hx cirrhosis/varices GI was to consider barium swallow if symptoms improve, however will be going home with hospice Plan Comfort-focused care, monitoring pain, awaiting set up at home for hospice perhaps tomorrow Admission and Anticipated Discharge Date Admission Date: June 25, 2023 Subjective Overnight with some pain, tolerable, relieved by PRNs. Endorses poor appetite, no BM yet. Physical Exam Constitutional: WD/WN, vitals as above Respiratory: normal respiratory effort, lungs clear to auscultation Cardiovascular: RRR, no murmur, no edema Gastrointestinal (Abdomen): less distended,hypoactive BS, tender to palpation Skin: some areas of scabbing and excoriation Psychiatric: A+Ox3, euthymic affect Results & Data Results & Data Vital Signs (Past 12 Hours) Vital Signs Temp Pulse Resp BP BP Pulse Ox O2 Del Method 07/04/23 08:35 37.2 C 99 H 18 177/96 H 94 Room Air 07/04/23 07:35 Room Air 07/04/23 00:51 95 H 175/74 H 166/76 H 07/04/23 00:12 101 H 181/82 H 164/74 H PG Care Time/CCT Total # of Minutes Spent Total Time Spent with Patient: Total time spent is greater than 50% in coordination of care (as documented) at patient's floor/unit and/or counseling patient: Coding Level of Care Code 33760 SUB INP/OBS CARE 2/35MIN Diagnoses Mesenteric ischemia K55.9 Ileus K56.7 Complicated UTI (urinary tract infection) N39.0 Urinary retention R33.9 Gross hematuria R31.0 CAD (coronary artery disease) I25.10 Psoriasis L40.9 GERD (gastroesophageal reflux disease) K21.9 Chronic pain G89.29 Cirrhosis K74.60
--- NOTE | 2023-07-04 12:57 | Palliative Care Progress Note ---
Date of Service July 04, 2023 Assessment & Plan (1) Upper abdominal pain: Plan: with mesenteric ischemia and ileus does not appear to have relief with glycopyrrolate which could be contributing to ileus, will stop she wants to go home with hospice and we discussed options for pain management at home. She did not get relief with IV fentanyl so fentanyl patch would likely not be helpful at home will order hydromorphone infusion at 1mg/hr with 0.5mg bolus every 30 minutes as needed discussed with Dr. Ortega (2) Chronic pain: Plan: chronic back pain with NG tube out would restart tizanidine with complaints of muscle spasm in her back on opioids for pain also (3) Nausea: Plan: worsening before NG tube dislodged ? related to hydromorphone She has h/o nausea and vomiting with morphine and did not get relief with fentanyl Increase olanzapine to 5mg at HS Continue prn zofran (4) Palliative care encounter: Plan: Mrs. Baltazar has been quite clear that she does not want any further interventions other than comfort focused care. She asked about using insulin at home. She does not have an appetite and requests only sips of fluid at this time. With decreased po intake, would stop insulin to avoid hypoglycemia. Hospice will monitor if her po intake increases. Discussed with case management and plan is for discharge home with hospice, hopefully tomorrow. Her son, Marco Antonio, who is also her POA, lives nearby and is very supportive of her decision. He will help with her care in addition to caregivers she has already established. Admission and Anticipated Discharge Date Admission Date: June 25, 2023 Subjective Mrs. Baltazar complains of pelvic pressure and pain, back pain and spasms, abdominal pressure and sharp pain in her abdomen. Hydromorphone increased to 2mg every 2 hours as needed over the weekend and she has been using it pretty much every two hours with brief break during sleep. She tells me that she slept well last night. She reports nausea had been better but is worse again. NG tube dislodged and and has been removed. Review of Systems 2 Review of Systems: Pain 3/3 Dyspnea 0/3 Nausea 2/3 Drowsiness 0/3 Anxiety 1/3 Physical Exam Constitutional: no acute distress Respiratory: normal respiratory effort; no labored breathing Gastrointestinal (Abdomen): decreased distension, tender to palpation Neurologic: Speech / Cognition: normal cognition Genitourinary: Serrano catheter Results & Data Vital Signs (Past 12 Hours) Vital Signs Temp Pulse Resp BP BP Pulse Ox O2 Del Method 07/04/23 08:35 99.0 F 99 H 18 177/96 H 94 Room Air 07/04/23 07:35 Room Air 07/04/23 00:51 95 H 175/74 H 166/76 H PG Care Time/CCT Total # of Minutes Spent Total Time Spent with Patient: Total time spent is greater than 50% in coordination of care (as documented) at patient's floor/unit and/or counseling patient: Coding Level of Care Code 04769 SUB INP/OBS CARE 3/50MIN Diagnoses Upper abdominal pain R10.10 Chronic pain G89.29 Nausea R11.0 Palliative care encounter Z51.5
[2023-07-04] MEDS ORDERED: SODIUM CHLORIDE 0.9% 500 ML IV SCH (13:45)
[2023-07-04] MEDS ORDERED: OLANZapine ZYDIS 5 MG ORALLY DIS. TAB PO SCH (21:00)
[2023-07-05] MEDS: HYDROmorphone BOLUS from BAG IV PRN ×2 (03:15→06:30)
[2023-07-05] MEDS: LORazepam 2 MG/1 ML VIAL IV PRN (03:18)
[2023-07-05] MEDS: ACETAMINOPHEN 1,000 MG/100 ML VIAL IV SCH (08:09)
[2023-07-05] MEDS: PANTOprazole 40 MG in SYRINGE 0 ML IV SCH (08:09)
[2023-07-05] MEDS: DICLOFENAC SOD 1% GEL 100 GM TUBE EXT SCH (08:09)
[2023-07-05] MEDS: UMECLIDINIUM BROMIDE 62.5MCG/BLISTER 7 PUFFS/INHALER INH SCH (08:09)
--- NOTE | 2023-07-05 08:13 | Discharge Summary ---
Discharge Summary Date of Service July 05, 2023 Admission HPI Per Admitting Provider Deidra is a 72-year-old female with a past medical history of Hernandez cirrhosis with portal hypertension, REDDY, polyneuropathy, urinary retention Presents by ambulance for right flank pain and lower abdominal pain with nausea. No fever. Urine cloudy, chronic indwelling Serrano. Requested transfer to [facility] due to her urologist being with our facility. Pt reports sees Dr. Madrigal as outpatient. Last 3 nurse visits was recommended to come to the ER, but had progressive low back and abdominal pain and coulnd't take the spasms so called EMS to come to the hospital. +dysuria, +bladder spasms which make her back pain worse. Recently been on Keflex for UTI, bactrim before that, cipro before that. Was last on an abx 10 days ago. Culture was taken at [facility] Feels more fatigued and confused the last few days, but feels she is able to answer questions accurately now just feels 'foggy.' Has decided to defer stimulator retrial 'its been for years, cant be re placed or removed due to my surgical risk and too much corrosion on the leasd.' Pt reports no bleeding/melena. +hematuria but no blood in bowls. Reports she does take nadolol for esophageal varices but was unable to tolerate this was gradually discontinued. Medical History: Reviewed Medications: Reviewed Surgical History: Reviewed Family history: Reviewed Allergies: Reviewed Social History: no tobacco, no etoh Code Status: DNR/DNI Admission Exam Per Admitting Provider General: A&Ox3. NAD. Cooperative. HEENT: Atraumatic, normocephalic. Vision/hearing intact Pulm: CTAB A&P. -wheezes, -rales, -rhonchi. Symmetrical chest rise. No increased work of breathing. No respiratory distress. Cardiac: RRR, -mrg. Radial pulses intact and symmetrical. Abdominal: Nontender, softly distended, soft. BS present. Extremities: Warm dry. Moves upper extremities equally. No asterixis Principal Dx & Hospital Course #1 = Principal Diagnosis (1) Mesenteric ischemia: 06/29 with worsening abdominal pain and distention, no rebound or guarding, STAT CT obtained CTAP with evidence of possible bowel ischemia CTA AP fortunately without evidence of mesenteric arterial occlusion STAT General Surgery consult with Dr. Broussard, recommended transfer for likely urgent ex lap NPO, NG tube placed with some mild improvement in abdominal distention, can continue this for comfort until discharge home After discussion with patient and family, she declines transfer for surgery, plan for comfort-focused care and home with hospice, discussed with patient and her son Discharged on Dilaudid infusion 1mg/hr Lorazepam as needed for anxiety/spasm/agitation, continue home tizanidine (2) Ileus: KUB 8/8 with mild gaseous distention and moderate fecal retention CTAP 8/9 with ileus and possible ischemia as above Suppositories as necessary for BMs for comfort care (3) Complicated UTI (urinary tract infection): Catheter-associated UTI Has chronic Serrano due to urinary retention, follows with [facility] CTAP without obstructing lesion in the urinary tract Recent cystoscopy done by [facility] show considerable bladder wall inflammation but no obvious vesicular fistula tract, however reportedly will need repeat study to confirm Cultures this admission grew out "oil field tester species" and E. faecalis, both sensitive to ampicillin, completed 7 days of IV Abx and have since been discontinued (4) Urinary retention: 2nd to recurrent UTIs, neurogenic causes, etc Has bladder stimulator but has not helped Has Serrano in place Follows with [facility] (5) Gross hematuria: 2nd to hemorrhagic cystitis (6) CAD (coronary artery disease): No evidence of ACS (7) Psoriasis: On apremilast BID chronically for such No evidence of rash, did discuss moisturization as patient has dry skin and this worsens itching and rashes Benadryl prn itching (8) GERD (gastroesophageal reflux disease): Continue PPI IV BID (9) Chronic pain: Palliative Care to assist with this for return home (10) Cirrhosis: Missed EGD outpatient due to admission (was for worsening Sx and surveillance EGD), reports worsening dysphagia and upper abd pain with Hx cirrhosis/varices GI was to consider barium swallow if symptoms improve, however will be going home with hospice Plan Comfort-focused care, monitoring pain, Discharge home with hospice Discharge Exam Constitutional WD/WN, vitals as above Gastrointestinal (Abdomen) abdomen soft Psychiatric A+Ox3, euthymic affect Updated Medication List Medication Instructions Recorded Confirmed Type hydroxyzine HCl 25 mg tablet 25 mg PO DAILY PRN Other 04/26/23 06/25/23 History pantoprazole 40 mg tablet,delayed 40 mg PO DAILY 04/26/23 06/25/23 History release (Protonix) pregabalin 300 mg capsule (Lyrica) 300 mg PO BID 04/26/23 06/25/23 History ropinirole 0.5 mg tablet 0.5 mg PO QPM 04/26/23 06/25/23 History tizanidine 4 mg capsule (Zanaflex) 4 mg PO Q6H PRN Other 04/26/23 06/25/23 History duloxetine 30 mg capsule,delayed 30 mg PO DAILY 06/25/23 06/25/23 History release ondansetron HCl 4 mg tablet See Rx Instructions .Route .COMPLEX 06/25/23 06/25/23 History olanzapine 5 mg disintegrating 5 mg PO HS 5 days #5 tabs 07/05/23 Rx tablet Hospital Stay Data Consultations 06/25/23 16:07 ED Decision to Admit Stat 06/27/23 15:50 Consult Gastroenterology Routine 06/29/23 17:07 Consult General Surgery Stat 06/30/23 07:20 Consult Palliative Care Routine Diagnostic Imagining Performed 06/25/23 14:00 CT abd pelvis wo con Stat 06/26/23 21:51 CT Abd and Pelvis [CT abd pelvis wo con] Stat 06/27/23 15:53 US gallbladder Routine 06/29/23 12:26 CT Abd and Pelvis [CT abd pelvis IV con only] Routine 06/29/23 20:10 CT angio abdomen pelvis w con Stat Pending Results Patient Have Any Pending Studies at Discharge: No Discharge Instructions Given to Patient (Per Discharging Provider) You were admitted to the hospital for evaluation of abdominal pain and burning. You are found to have a urinary tract infection, and you were treated with antibiotics. Unfortunately, you developed an ileus or a stoppage of the bowel during your admission here, and developed likely bowel ischemia. After long discussion you decided to go home with hospice, and you will go home with a Dilaudid infusion. The hospice providers will help you with adjusting that medication so that you are comfortable. The hospice providers will be able to add any medications that they need to for anxiety or agitation should you need them. If you have any concerns with regard to your pain or other medical problems, please contact the hospice providers. I have updated your medication list below, prioritizing medications for comfort of pain, spasms, and anxiety. All the other medications that are listed as discontinued you can stop. Total Time Total Time Spent Total Time Spent (In Minutes): 40 min Coding Level of Care Code 04858 INP/OBS DISCH >30 MIN Diagnoses Mesenteric ischemia K55.9 Ileus K56.7 Complicated UTI (urinary tract infection) N39.0 Urinary retention R33.9 Gross hematuria R31.0 CAD (coronary artery disease) I25.10 Psoriasis L40.9 GERD (gastroesophageal reflux disease) K21.9 Chronic pain G89.29 Cirrhosis K74.60
[2023-07-05] MEDS: ONDANSETRON INJ 2 MG/ML 2 ML VIAL IV PRN (09:16)
[2023-07-05] MEDS ORDERED: HYDROmorphone INJ 1 MG/ML SYRINGE IV ONE (12:00)
--- NOTE | 2023-07-05 12:07 | Palliative Care Progress Note ---
Date of Service July 05, 2023 Assessment & Plan (1) Upper abdominal pain: Plan: With mesenteric ischemia On hydromorphone infusion with relief. She will receive bolus dose prior to discharge. Hospice will start infusion for her at home when she arrives. Continue prn tizanidine for back spasms. Continue diclofenac gel (2) Nausea: Plan: Continue hs zyprexa for nausea Diet as tolerated (3) Palliative care encounter: Plan: Plan for discharge home today with hospice to follow at home. Discussed with case management. Admission and Anticipated Discharge Date Admission Date: June 25, 2023 Subjective Awake and alert. Anxious to go home. She had 2 bolus doses of hydromorphone overnight per RN. Complained of headache this morning, relieved by tylenol. Review of Systems Review of Systems: Pain 2/3 Dyspnea 0/3 NAusea 1/3 Drowsiness 0/3 Physical Exam Constitutional: no acute distress Respiratory: normal respiratory effort; no labored breathing Gastrointestinal (Abdomen): decreased distension Neurologic: Speech / Cognition: normal cognition Results & Data Vital Signs (Past 12 Hours) Vital Signs Temp Pulse Pulse Resp BP BP Pulse Ox 07/05/23 11:43 98.6 F 99 H 100 H 20 175/74 H 94 07/05/23 08:00 07/05/23 07:56 98.6 F 100 H 20 193/100 H 94 O2 Del Method 07/05/23 11:43 07/05/23 08:00 Room Air 07/05/23 07:56 Room Air PG Care Time/CCT Total # of Minutes Spent Total Time Spent with Patient: Total time spent is greater than 50% in coordination of care (as documented) at patient's floor/unit and/or counseling patient: Coding Level of Care Code 56058 SUB INP/OBS CARE 2/35MIN Diagnoses Upper abdominal pain R10.10 Nausea R11.0 Palliative care encounter Z51.5
== END 2023-07-05 12:49 | disposition hospice, home (50) | DRG 698 ==
LOC: ED 13:53 → 3N 17:29 → SUATTDRO 17:29 → 3N 18:40 → 2E 06-29 19:13 → 3E 07-03 13:51